=== PATIENT | male | born 1980 | race Caucasian/White ===

== ENCOUNTER 2018-08-22 10:27 | Outpatient (REF) | payer MEDICAID, SELFPAY ==
[2018-08-22 12:53] LABS: Anion Gap 7.7 mmol/L (3-11); BUN 11 mg/dL (7-18); CO2 29.3 mmol/L (21.0-32.0); CREATININE 0.89 mg/dL (0.70-1.30); Calcium 9.7 mg/dL (8.5-10.1); Chloride 101 mmol/L (98-107); Glucose 103 mg/dL (70-100); Magnesium 2.1 mg/dL (1.8-2.4); Potassium 4.4 mmol/L (3.5-5.1); Sodium 138 mmol/L (136-145)
[2018-08-22 12:58] LABS: HCT 49.6 % (40.0-50.0); HGB 16.9 g/dL (13.5-17.5); Mean Corp. HGB Concentration 34.1 g/dL (32.0-36.0); Mean Corpuscular Hemoglobin 30.8 pg (27.0-33.0); Mean Corpuscular Volume 90.5 fL (80-95); Mean Platelet Volume 10.4 fL (8.0-11.0); Platelet Count 276 x1000/uL (130-400); RBC 5.48 m/cumm (4.50-6.00); RBC Distribution Width 14.8 % (11.8-14.1); White Blood Cell Count 9.18 k/cumm (4.4-10.8)
[2018-08-22 14:01] LABS: ESR 18 MM/HR (0-15)
== END 2018-08-22 10:47 ==
LOC: NCHCN 10:27
PROVIDERS: PCP Nurse Practitioner Family; Visit Provider Nurse Practitioner Family
DX: M79.10 Myalgia, unspecified site (principal)
CPT/HCPCS: 80048; 85027; 85652; 83735; 84550

== ENCOUNTER 2019-11-05 11:40 | Emergency (ER) | payer MEDICAID, SELFPAY ==
[2019-11-05 11:57] VITALS: BP 111/81; PULSE 104; RESP 16; TEMP 36.6; O2SAT 97
--- NOTE | 2019-11-05 12:00 | ED.GENADUL_ITS ---
Discharge Plan Disposition Patient Disposition: HOME Condition: Improving Discharge Details Chief Complaint: Nk/Back Pain Clinical Impression: Acute exacerbation of chronic low back pain Primary Care Provider: Araceli Bowers ED Provider: Jemma Chandra Home Meds and New Rx's Prescriptions: New prednisone 20 mg tablet 60 mg PO DAILY 3 Days Qty: 9 RF: 0 oxycodone 5 mg tablet 5 mg PO Q4H PRN (Reason: pain) Qty: 5 RF: 0 Continued gabapentin 600 mg Tablet 600 mg PO BID RF: 0 meloxicam 15 mg Tablet 15 mg PO DAILY RF: 0 Discharge Instructions Instructions: Low Back Strain (ED) Additional Instructions: Encourage water intake. Encourage gentle stretching and frequent ambulation. May use 1000mg Tylenol every 6 hours as needed for pain. May use Meloxicam as prescribed, do not take further until tomorrow morning. Please take the steroids as prescribed. You may use the oxycodone as prescribed. Do not drive will take this medication. Keep this in a safe place. Take only as prescribed. Please follow-up with primary care this week for reevaluation. If you develop fever/chills, weakness, sensation changes, changes in her bowel or bladder habits or the new/worsening symptom please seek care urgently once again. Referrals: Araceli Bowers [Primary Care Provider] - Medical Decision Making Patient is a pleasant 38-year-old male presents today with chief complaint of acute on chronic right-sided back pain. Patient has known disc disease in the lumbar spine and typically has some low-level chronic pain. However, he has not had a flare like this in several years. He does report this feels the same his previous issues. Denies any trauma but reports that he did start a more physical job last week which is likely contributing to his increased pain. He reports that his pain has been progressively increasing over the next 3 to 4 days today he is been having difficulty with ambulation secondary to the pain. He was able to get himself here, drove himself to the ER without issue. He denies any altered sensation. Denies any focal area of weakness. Finds the pain is exacerbated particularly with moving the right leg out in front of him. He reports that he has been on steroids historically like to try to avoid these if possible secondary to side effects. Reports that Toradol has worked well for him in the past. Patient reports that he has known disc disease of L1, L2 and S1 On exam, patient appears uncomfortable. Pain is maximal over the right SI joint and paraspinal aspect of the lower lumbar spine. He has no neurologic deficit, no saddle paresthesias. Strength is intact, equal reflexes. No skin discoloration or evidence of infection. Patient slightly tachycardic at 104, is likely associated with pain. Without any trauma or acute changes pain, do not feel that any imaging is warranted. No neurologic deficit, I do not have suspicion for cauda equina at this point. No other emergent etiology. Will treat as he has been in the past for his acute on chronic back pain. Patient is feeling improved after Toradol but feels the pain is still too severe to be able to go home at this point. We will augment this with Tylenol, Lidoderm patch. He and I also revisited the option of oral steroids. He states that he has tolerated them but was hoping to stay off of them. States that they have worked quite well for him historically. We discussed a watch and wait approach with prescription After above discussion, spoke with patient again and at this point, he is requesting oral steroids. Has not had a true adverse reaction to them, since that he has tolerated them well. Will begin on 60 mg oral prednisone Patient continues to feel improved and is requesting discharge. We did discuss risk/benefits of additional narcotic medications. 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 He does feel ready for discharge. Will prescribe oxycodone to take prior to bed to help with severe discomfort if needed. He was given strict usage instructions. He will not drive will take this medication. He was given strict return precautions. Will contact primary care tomorrow to schedule follow-up appointment. Encourage hydration. He has worked with physical therapy historically and will begin performing their exercises as previously advised. He was given strict return precautions. All his questions and concerns were addressed and he is in agreement this plan. [facility] General Mode of arrival: ambulatory . Date/Time Provider Initiated Documentation: 11/05/19 11:54 . Limitations to Documentation: no limitations . Information obtained by: patient and RN notes reviewed . History of Present Illness 38 year old M presents to the emergency department with the chief complaint of right sided back pain, described as severe and similar to prior episodes (reports last flair of pain was a few years ago), with intensity rated at 9. Quality is described as stabbing, and is localized to the back. Patient extremity. Patient started experiencing this day(s) and it has been constant. Immobilization improves symptom(s), Movement worsens symptoms . Patient notes no other symptoms.; denies chest pain, cough, diaphoresis, fever/chills, headaches, loss of appetite, nausea/vomiting, rash and weakness. Patient did receive the following treatments prior to arrival, none Related Data Home Medications Medication Instructions Recorded Confirmed gabapentin 600 mg PO BID 11/05/19 11/05/19 meloxicam 15 mg PO DAILY 11/05/19 11/05/19 oxycodone 5 mg PO Q4H PRN #5 tab 11/05/19 prednisone 60 mg PO DAILY 3 Days #9 tab 11/05/19 Previous Rx's Medication Instructions Recorded oxycodone 5 mg PO Q4H PRN #5 tab 11/05/19 prednisone 60 mg PO DAILY 3 Days #9 tab 11/05/19 Allergies Allergy/AdvReac Type Severity Reaction Status Date / Time No Known Allergies Allergy Unverified 11/05/19 12:02 Review of Systems Constitutional Constitutional: Reports as per HPI, Denies chills, Denies fatigue, Denies fever(s), Denies frequent falls and Denies headache(s) Eyes Eyes: Denies change in vision ENT Ears, Nose, Mouth, and Throat: Denies headache(s) Cardiovascular Cardiovascular: Denies chest pain, Denies dyspnea and Denies dyspnea on exertion Respiratory Respiratory: Denies cough, Denies dyspnea and Denies dyspnea on exertion Gastrointestinal Gastrointestinal: Denies abdominal pain, Denies change in bowel habits and Denies fecal incontinence Genitourinary Genitourinary: Reports as per HPI, Denies urinary hesitancy and Denies urinary incontinence Musculoskeletal Musculoskeletal: Reports as per HPI, Reports back pain, Denies muscle weakness, Denies numbness, Denies radiating pain into limb, Reports stiffness and Denies tingling Integumentary/Breasts Skin/Breast: Reports as per HPI and Denies rash Neurologic Neurologic: Reports as per HPI, Denies frequent falls, Denies headache(s), Denies focal weakness, Denies numbness, Denies radicular pain, Denies sensory deficit, Denies tingling and Denies paresthesias Endocrine Endocrine: Denies fatigue [facility] Social History Smoking/Tobacco Use Status: Current every day Drug use: Occasionally Do you feel safe at home: Yes Do you feel safe in your relationship?: Yes Exam Const General: cooperative, healthy appearing, uncomfortable (patient leaning to the left, appears uncomfortable), no acute distress, well developed and well groomed Nutritional Appearance: well nourished and overweight Orientation: alert and awake Eyes General: appearance normal, both eyes and all related structures Neck Neck: normal visual inspection, full ROM, no lymphadenopathy and no meningeal signs Resp Effort & Inspection: normal respiratory effort and able to speak in complete sentences Auscultation: clear to auscultation bilaterally, no rales, no rhonchi and no wheezes Cardio Rate: regular rate Rhythm: regular rhythm Heart Sounds: S1 normal and S2 normal Back/Spine/Pelvis Back: no CVA tenderness Cervical Spine: normal cervical lordosis and cervical ROM normal Thoracic/Lumbar Spine: thoracic and lumbar spine normal to inspection, No thoraco-lumbar ROM normal (limited secondary to right sided lumbar pain), No straight leg raise negative bilaterally (positive right side), No mass, pain with thoraco-lumbar ROM, paraspinal tenderness (right side of lumbar spine, diffuse), No thoraco-lumbar spasm, No thoracic spinal tenderness, No lumbar spinal tenderness and straight leg raise positive (right) Pelvis: no pain with anterior-posterior compression and no pain with lateral compression Sacroiliac joints: on the right tender to palpation and on the left nontender Skin General skin exam: no rashes or lesions noted Neuro General: alert and awake Cognition: normal cognition Speech: speech normal Gait: antalgic Motor: muscle tone normal throughout, strength 5/5 throughout, no movement abnormalities noted and no fasciculations Sensory Exam: no sensory deficits noted (no saddle paresthesias) DTR's: Rt Patellar: 2+, Lt Patellar: 2+, Rt Ankle: 2+ and Lt Ankle: 2+ Extrem General: normal to inspection, full ROM, normal capillary refill, no joint enlargement, no pedal edema, no calf tenderness and normal gait Psych Appearance: grossly normal and well kempt Mental Status: mental status grossly normal Speech and Movement: speech and movement normal
[2019-11-05] MEDS: Ketorolac 60 MG/2 ML VIAL IM (12:19)
[2019-11-05] MEDS: Lidocaine 5% Patch 1 PATCH TP (12:45)
[2019-11-05] MEDS: Acetaminophen 500 MG TAB 1000 MG PO (12:55)
[2019-11-05] MEDS: predniSONE 20 MG TAB 60 MG PO (12:56)
[2019-11-05 13:25] VITALS: BP 124/81; PULSE 96; RESP 16; TEMP 36.6; O2SAT 96
== END 2019-11-05 13:55 | disposition home or self-care (01) ==
PROVIDERS: Emergency Provider Physician Assistant; PCP Nurse Practitioner Family
DX: M54.5 Low back pain (principal); G89.29 Other chronic pain
CPT/HCPCS: 96372; 99284; J1885; J7512

== ENCOUNTER 2019-11-14 07:13 | Emergency (ER) | payer MEDICAID, SELFPAY ==
[2019-11-14 07:16] VITALS: BP 150/86; PULSE 99; RESP 16; TEMP 36.4; O2SAT 96
--- NOTE | 2019-11-14 07:23 | ED.GENADUL_ITS ---
Discharge Plan Disposition Patient Disposition: HOME Condition: Good Discharge Details Chief Complaint: EyeProblem Clinical Impression: Abrasion of cornea, right Primary Care Provider: Araceli Bowers ED Provider: Suresh Marie [place] Meds and New Rx's Prescriptions: New erythromycin 5 mg/gram (0.5 %) Ointment 0.5 inch ophthalmic (eye) Q6H PRNQty: 3.5 RF: 0 Continued gabapentin 600 mg Tablet 600 mg PO BID RF: 0 meloxicam 15 mg Tablet 15 mg PO DAILY RF: 0 oxycodone 5 mg tablet 5 mg PO Q4H PRN (Reason: pain) Qty: 5 RF: 0 Discharge Instructions Instructions: Corneal Abrasion (ED) Additional Instructions: Antibiotic ointment as directed every 4-6 hours for the first couple of days and then every 6 hours for a week. Follow-up with [facility] eye care in 5 to 7 days. Return to ED if change in vision, worsening eye pain, other concerns. Stand Alone Forms: Work Release Referrals: [facility] [Outside] Medical Decision Making Tetracaine used to anesthetize the right eye. Upper eyelid everted and swept but no obvious foreign body. Fluorescein staining done. Uptake noted at the 6 o'clock position. Under slit lamp exam no foreign body appreciated but definite corneal abrasion noted. Will start erythromycin ointment. Tylenol Motrin for discomfort. Follow-up in about a week for [facility]he[facility] with [facility]. Return to ED if change in vision, worsening pain, other concerns. HPI General Mode of arrival: ambulatory . Date/Time Provider Initiated Documentation: 11/14/19 07:23 . Limitations to Documentation: no limitations . Information obtained by: patient . HPI Narrative: Patient presents to ED with right eye irritation and foreign body sensation. Patient initially noticed yesterday morning. He felt like he had got something in it while walking through his kitchen but had no specific injury. It has been irritated and felt like something was in it since then. He has irrigated a few times. He tried to go to work today but the eyes bothering him too much so he came in for evaluation. There is no vision change chest irritation foreign body sensation. Related Data Home Medications Medication Instructions Recorded Confirmed gabapentin 600 mg PO BID 11/05/19 11/14/19 meloxicam 15 mg PO DAILY 11/05/19 11/14/19 oxycodone 5 mg PO Q4H PRN #5 tab 11/05/19 11/14/19 erythromycin 0.5 inch OPHTHALMIC (EYE) Q6H PRN 11/14/19 #3.5 gm Previous Rx's Medication Instructions Recorded oxycodone 5 mg PO Q4H PRN #5 tab 11/05/19 erythromycin 0.5 inch OPHTHALMIC (EYE) Q6H PRN 11/14/19 #3.5 gm Allergies Allergy/AdvReac Type Severity Reaction Status Date / Time No Known Allergies Allergy Unverified 11/14/19 07:21 General Stated Complaint: EyeProblem KAMARI: 4 Review of Systems Constitutional Constitutional: Denies fever(s) Eyes Eyes: Denies change in vision and Reports irritation COUNTS INCLUDE 234 BEDS AT THE [facility] Social History Smoking/Tobacco Use Status: Current every day Alcohol Intake: former Drug use: Occasionally Do you feel safe at home: Yes Do you feel safe in your relationship?: Yes Exam Const General: cooperative and comfortable Orientation: alert and oriented x3 HENMT Head: normocephalic and atraumatic General nose exam: external nose normal Face and sinus: normal facial exam Eyes Periorbital: periorbital findings normal Eyelids: eyelids normal Conjunctivae: conjunctival abnormality right conjunctival injection Cornea: corneas abnormal on the right fluorescein used and abrasion curved and at the following clock position (6) Pupils: PERRL EOM: EOM intact bilaterally Course Vital Signs Vital signs: Vital Signs Temperature 97.5 F L 11/14/19 07:16 Pulse 99 H 11/14/19 07:16 Respiratory Rate 16 11/14/19 07:16 Blood Pressure 150/86 H 11/14/19 07:16 Pulse Oximetry 96 11/14/19 07:16 Temperature 97.5 F L 11/14/19 07:16 Temperature Source Temporal Artery Scan 11/14/19 07:16 Pulse 99 H 11/14/19 07:16 Respiratory Rate 16 11/14/19 07:16 Respiratory Effort Non-Labored 11/14/19 07:18 Blood Pressure 150/86 H 11/14/19 07:16 Blood Pressure Position Sitting 11/14/19 07:16 Pulse Oximetry 96 11/14/19 07:16 Oxygen Delivery Method Room Air 11/14/19 07:16 Oxygen Flow Rate 0 11/14/19 07:16 Pain Level 6 11/14/19 07:16
[2019-11-14] MEDS: Fluorescein STRIPS 100/BOX 1 MG (07:42)
[2019-11-14] MEDS: Erythromycin Ophth Oint 3.5 GM TUBE (07:42)
[2019-11-14] MEDS: Tetracaine 0.5% 4 ML BTL (07:43)
== END 2019-11-14 07:52 | disposition home or self-care (01) ==
LOC: ER 07:51
PROVIDERS: Emergency Provider Emergency Medicine; PCP Nurse Practitioner Family
DX: S05.01XA Injury of conjunctiva and corneal abrasion without foreign body, right eye, initial encounter (principal); X58.XXXA Exposure to other specified factors, initial encounter
CPT/HCPCS: 99283

== ENCOUNTER 2020-10-29 13:27 | Emergency (ER) | payer MEDICAID, SELFPAY ==
[2020-10-29 13:32] VITALS: BP 129/86; PULSE 102; RESP 16; TEMP 36.6; O2SAT 96
--- NOTE | 2020-10-29 13:49 | W.ED.GENAD ---
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 Continue taking your medications as directed. Cool and/or warm compresses every 2 hours for 20 minutes. Gentle stretching as tolerated. Please watch for new or worsening symptoms and return to the ER for any concerns. Stand Alone Forms: Work Release Medical Decision Making 39-year-old gentleman, past medical history of chronic back pain presents to the ER today with exacerbation of the past 3 days. No obvious trauma. He denies fever, IV drug use, bowel or bladder retention-incontinence, numbness, tingling, weakness. Clinically he appears uncomfortable but is not in any distress. Neuro, vascular, tendon intact. No evidence of cauda equina on examination. Discussed options. Do not believe that emergent imaging is indicated as he recently had an outpatient MRI and this was atraumatic. He states that Toradol has helped him in the past. Will give 60 IM Toradol now. He will follow up with his pain management team tomorrow as already scheduled for his epidural injection.m Medical Records Medical records reviewed: Yes I reviewed the patient's medical records. HPI General Mode of arrival: ambulatory. Date/Time Provider Initiated Documentation: 10/29/20 13:28. Limitations to Documentation: no limitations. Information obtained by: patient. HPI Narrative: This is a 39-year-old gentleman, past medical history of chronic back pain, L5-S1 herniation. He sees pain management for this, is on meloxicam and gabapentin. Is scheduled for an epidural injection tomorrow. Here today because his pain over the past 3 days has increased, no obvious injury. Reports the pain is the same as his other flareups, travels down his right leg but not past his knee. Denies any abdominal pain, fever, midline point tenderness, urinary or bowel incontinence or retention, numbness, tingling, weakness. States that in the past Toradol has helped greatly. Related Data Home Medications Medication Instructions Recorded Confirmed meloxicam 15 mg PO DAILY 11/05/19 10/29/20 gabapentin 600 mg tablet 600 mg PO TID 30 Days #90 tab 02/28/20 10/29/20 Previous Rx's Medication Instructions Recorded gabapentin 600 mg tablet 600 mg PO TID 30 Days #90 tab 02/28/20 Allergies Allergy/AdvReac Type Severity Reaction Status Date / Time No Known Allergies Allergy Unverified 10/29/20 13:36 General Stated Complaint: Nk/Back Pain KAMARI: 4 Review of Systems Constitutional Constitutional: Denies fever(s) and Denies weakness Cardiovascular Cardiovascular: Denies chest pain and Denies dyspnea Respiratory Respiratory: Denies cough and Denies dyspnea Gastrointestinal Gastrointestinal: Denies abdominal pain, Denies fecal incontinence, Denies nausea and Denies vomiting Genitourinary Genitourinary: Denies hematuria, Denies dysuria and Denies urinary incontinence Musculoskeletal Musculoskeletal: Reports back pain, Denies numbness and Denies tingling Integumentary/Breasts Skin/Breast: Denies rash Neurologic Neurologic: Denies numbness, Denies tingling and Denies weakness [facility] Medical History Abscess, groin Acute low back pain Arthralgia Chronic low back pain Degenerative disc disease, lumbar 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 Myalgia Patellofemoral syndrome Sleep disturbance Tobacco dependence Surgical History History of appendectomy Social History Smoking/Tobacco Use Status: Current every day Tobacco Type: cigarettes Smoking risk assessment performed?: Yes Alcohol Intake: current Alcohol Intake frequency: holidays/special occasions only Drug use: Occasionally Substance use type: marijuana Details: recreational cannabis use Do you feel safe at home: Yes Do you feel safe in your relationship?: Yes Exam Const General: cooperative, healthy appearing, no acute distress and other (Appears uncomfortable) Orientation: alert, awake and oriented x3 HENMT Head: normal to inspection, normocephalic and atraumatic Eyes General: appearance normal, both eyes and all related structures Conjunctivae: conjunctivae normal Sclera: sclerae normal Neck Neck: normal visual inspection, full ROM, no meningeal signs, trachea midline and supple Resp Effort & Inspection: normal respiratory effort and able to speak in complete sentences Auscultation: clear to auscultation bilaterally Cardio Rate: regular rate Rhythm: regular rhythm GI Inspection: normal to inspection Palpation: soft, not firm, no guarding, no pulsatile masses and nontender Back/Spine/Pelvis Back: no CVA tenderness and back tenderness (Diffuse right lumbar, no midline point tenderness or spasm) Skin General skin exam: no rashes or lesions noted Neuro General: patient alert, patient awake, moves all extremities and no focal motor deficits Cognition: normal cognition Speech: speech normal Gait: antalgic Motor: muscle tone normal throughout Sensory Exam: no sensory deficits noted Extrem General: normal to inspection, full ROM, capillary refill normal, no pedal edema and no calf tenderness Psych Appearance: grossly normal Mental Status: mental status grossly normal Course Vital Signs Vital signs: Vital Signs Temperature 36.6 C 10/29/20 13:32 Pulse 102 H 10/29/20 13:32 Respiratory Rate 16 10/29/20 13:32 Blood Pressure 129/86 10/29/20 13:32 Pulse Oximetry 96 10/29/20 13:32 Temperature 36.6 C 10/29/20 13:32 Temperature Source Skin 10/29/20 13:32 Pulse 102 H 10/29/20 13:32 Respiratory Rate 16 10/29/20 13:32 Respiratory Effort Non-Labored 10/29/20 13:32 Blood Pressure 129/86 10/29/20 13:32 Blood Pressure Position Sitting 10/29/20 13:32 Pulse Oximetry 96 10/29/20 13:32 Oxygen Delivery Method Room Air 10/29/20 13:32 Oxygen Flow Rate 0 10/29/20 13:32 Pain Level 8 10/29/20 13:37
[2020-10-29] MEDS: Ketorolac 60 MG/2 ML VIAL IM (14:04)
== END 2020-10-29 14:19 | disposition home or self-care (01) ==
PROVIDERS: Emergency Provider Physician Assistant; PCP Nurse Practitioner Family
DX: M54.5 Low back pain (principal); G89.29 Other chronic pain
CPT/HCPCS: 96372; 99284; 99283; J1885

== ENCOUNTER 2020-10-30 15:02 | Outpatient (CLI) | payer MEDICAID, SELFPAY ==
--- NOTE | 2020-10-30 06:00 | DI.RAD_ITS ---
EXAM: XR PAIN CLINIC LUMBAR SP 2V CLINICAL HISTORY: Dx: Lumbar Radiculopathy TECHNIQUE: 2D and realtime digital imaging was performed. CONTRAST MATERIAL: None. COMPARISON: No exams were available for comparison FINDINGS: Fluoroscopy was provided for Dr. Pope During the performance of a L5-S1 epidural steroid injection.. Please refer to the procedure report for complete details. Fluoro time: 16.9 seconds Cumulative dose: 10.91 mGy IMPRESSION:
[2020-10-30 15:08] VITALS: BP 106/83; PULSE 104; RESP 18; TEMP 37.4; O2SAT 96
[2020-10-30] MEDS: Omnipaque 240 MG/ML 50 ML BTL IJ (15:32)
[2020-10-30] MEDS: methylPREDNISolone ACETATE 80 MG/ML VIAL IJ (15:32)
--- NOTE | 2020-10-30 15:33 | PDOC.PAIN_ITS ---
Pain Clinic Procedure Note Procedure Note Procedure Note: Date of procedure: October 30, 2020 Lumbar Epidural Steroid Injection Procedure Note COMMENTS: He was seen by Fernando Patricia on 10/09/20 and had an MRI of the lumbar spine on 09/06/20. His pain is running down the right leg. I have reviewed his recent evaluations and documentation. DX: Lumbosacral radiculopathy FRANCY KUHN has been referred to the [facility] for lumbar epidural steroid injection. The patient was greeted by the nurse who verified patients name and . Patient was then taken to the fluoroscopy suite. The patient was interviewed and the medial record reviewed. There were no medica l, pharmacologic, radiographic, or other structural contraindications to attempting fluoroscopically guided lumbar epidural steroid injection. Risks and expected side effects as well as potential benefits of the procedure were reviewed and voiced concerns expressed. The patient consent form was signed and witnessed. Standard patient time-out procedure was performed. The patient was placed in the prone position on the fluoroscopy table and automated blood pressure cuff and pulse oximeter applied. The skin entry point for entering/approaching the epidural space at L5-S1 and marked. Following thorough chlorhexadine preparation of the skin and draping and 1% lidocaine infiltration of the skin entry point and subcutaneous tissues, a 18 gauge Touhy needle was placed under fluoroscopic guidance and with loss of resistance technique into the epidural space. Needle tip placement and depth were aided and confirmed by fluoroscopy. There was no paresthesia or return of blood or CSF through the needle. 1 cc's of Omnipaque 240 was injected with clear epidural spread confirmed with fluoroscopy. 80mg depomedrol was injected. There was not any unusual discomfort expressed by FRANCY KUHN. Patient's vital signs were stable throughout the procedure and were as recorded in nursing records. Follow up plans and appointments were discussed with patient. Post procedure instruction was given as documented in nursing records and having met discharge criteria and was discharged from the [facility] Management Center. COMMENTS: If this procedure is helpful, it can be completed up to 3 times per 12 months. Eduardo Pope DO, MPH Pain Management
[2020-10-30 15:42] VITALS: BP 128/87; PULSE 104; RESP 20; O2SAT 97
== END 2020-10-30 15:22 ==
PROVIDERS: PCP Nurse Practitioner Family; Visit Provider Preventive Medicine Occupational Medicine
DX: M54.17 Radiculopathy, lumbosacral region (principal)
CPT/HCPCS: 62323; 72100; J1040; Q9967

== ENCOUNTER 2020-12-25 15:46 | Outpatient (REF) | payer MEDICAID, SELFPAY ==
[2020-12-25 16:04] LABS: Anion Gap 9.4 mmol/L (3-11); BUN 15 mg/dL (7-18); CO2 26.6 mmol/L (21.0-32.0); CREATININE 0.9 mg/dL (0.70-1.30); Calcium 9.3 mg/dL (8.5-10.1); Calculated LDL 122 mg/dL (<100); Chloride 104 mmol/L (98-107); Cholesterol 229 mg/dL (<200); Glucose 98 mg/dL (74-106); HDL Cholesterol 36 mg/dL (40-60); Potassium 4.7 mmol/L (3.5-5.1); Sodium 140 mmol/L (136-145); Triglyceride 355 mg/dL (<150)
== END 2020-12-25 15:47 | disposition home or self-care (01) ==
LOC: NCHCN 15:46
PROVIDERS: PCP Nurse Practitioner Family; Visit Provider Nurse Practitioner Family
DX: F17.200 Nicotine dependence, unspecified, uncomplicated (principal); Z13.220 Encounter for screening for lipoid disorders; M54.5 Low back pain
CPT/HCPCS: 80048; 80061

== ENCOUNTER 2021-02-11 14:28 | Outpatient (CLI) | payer MEDICAID, SELFPAY ==
--- NOTE | 2021-02-11 06:00 | DI.RAD_ITS ---
EXAM: XR PAIN CLINIC LUMBAR SP 2V CLINICAL HISTORY: Dx: Lumbar Radiculopathy TECHNIQUE: 2D and realtime digital imaging was performed. COMPARISON: No exams were available for comparison FINDINGS: C-arm fluoroscopy was utilized by Dr. Perez during reported lumbar epidural steroid injection. Hard epic kaleidoscope analyst y shows midline injection at L5-S1. IMPRESSION: RADIATION DOSE DELIVERED: Maggier=13.5 mGy
--- NOTE | 2021-02-11 14:33 | PDOC.PAIN_ITS ---
Pain Clinic Procedure Note Procedure Note Procedure Note: Date of procedure: February 11, 2021 Lumbar Epidural Steroid Injection Procedure Note COMMENTS: He was seen by Yuliyamanjinder on 10/09/20 and had an MRI of the lumbar spine on 09/06/20. He had a L5-S1 LESI by Dr Pope on 10/30/2020 which provided at least 75% pain relief lasting for 3 months and his right leg radicular symptom gradually returned. He returns today for a repeat injection. DX: Lumbosacral radiculopathy FRANCY KUHN has been referred to the [facility] for lumbar epidural steroid injection. The patient was greeted by the nurse who verified patients name and . Patient was then taken to the fluoroscopy suite. The patient was interviewed and the medial record reviewed. There were no medical, pharmacologic, radiographic, or other structural contraindications to attempting fluoroscopically guided lumbar epidural steroid injection. Risks and expected side effects as well as potential benefits of the procedure were reviewed and voiced concerns expressed. The patient consent form was signed and witnessed. Standard patient time-out procedure was performed. The patient was placed in the prone position on the fluoroscopy table and automated blood pressure cuff and pulse oximeter applied. The skin entry point for entering/approaching the epidural space at L5-S1 and marked. Following thorough chlorhexadine preparation of the skin and draping and 1% lidocaine inf iltration of the skin entry point and subcutaneous tissues, a 18 gauge Touhy needle was placed under fluoroscopic guidance and with loss of resistance technique into the epidural space. Needle tip placement and depth were aided and confirmed by fluoroscopy. There was no paresthesia or return of blood or CSF through the needle. 1 cc's of Omnipaque 240 was injected with clear epidural spread confirmed with fluoroscopy. 80mg depomedrol was injected, additional 1cc of preservative free 1% lidocaine and 0.5cc of preservative free normal saline was injected to flush the solution of the Touhy needle. There was not any unusual discomfort expressed by FRANCY KUHN. Patient's vital signs were stable throughout the procedure and were as recorded in nursing records. Follow up plans and appointments were discussed with patient. Post procedure instruction was given as documented in nursing records and having met discharge criteria and was discharged from the [facility]. COMMENTS: If this procedure is helpful, it can be completed up to 3 times per 12 months. Lilian [facility]
[2021-02-11 14:37] VITALS: BP 118/67; PULSE 93; RESP 18; TEMP 36.7; O2SAT 94
[2021-02-11] MEDS: Omnipaque 240 MG/ML 50 ML BTL IJ (15:05)
[2021-02-11] MEDS: methylPREDNISolone ACETATE 80 MG/ML VIAL IJ (15:06)
[2021-02-11 15:07] VITALS: BP 150/58; PULSE 88; RESP 19; O2SAT 96
== END 2021-02-11 14:29 | disposition home or self-care (01) ==
LOC: PC 14:29
PROVIDERS: PCP Nurse Practitioner Family; Visit Provider Internal Medicine
DX: M54.17 Radiculopathy, lumbosacral region (principal)
CPT/HCPCS: 62323; 72100; J1040; Q9967

== ENCOUNTER 2021-09-24 08:19 | Outpatient (CLI) | payer MEDICAID, SELFPAY ==
[2021-09-24 08:32] VITALS: BP 125/78; PULSE 104; RESP 18; TEMP 36.9; O2SAT 95
--- NOTE | 2021-09-24 08:55 | DI.RAD_ITS ---
Exam(s) XR PAIN CLINIC LUMBAR SP 2V EXAM: XR PAIN CLINIC LUMBAR SP 2V CLINICAL HISTORY: DX: Lumbar Radiculopathy TECHNIQUE: 2D and realtime digital imaging was performed. CONTRAST MATERIAL: Refer to procedure report. COMPARISON: No exams were available for comparison FINDINGS: Fluoroscopy was provided for Dr. Pope during the performance of a epidural steroid injection. Plehuey e refer to the procedure report for complete details. Ka,r=12.08 mGy IMPRESSION:
[2021-09-24 08:56] VITALS: BP 120/64; PULSE 93; RESP 17; O2SAT 97
[2021-09-24] MEDS: methylPREDNISolone ACETATE 80 MG/ML VIAL IJ (08:57)
[2021-09-24] MEDS: Omnipaque 240 MG/ML 50 ML BTL IJ (08:57)
--- NOTE | 2021-09-24 09:02 | PDOC.PAIN ---
Pain Clinic Procedure Note Procedure Note Procedure Note: Lumbar Epidural Steroid Injection Procedure Note COMMENTS: Pre-procedure pain VAS was 7/10. Dx: Lumbosacral radiculopathy FRANCY KUHN has been referred to the [facility] for lumbar epidural steroid injection. The patient was greeted by the nurse who verified patients name and . Patient was then taken to the fluoroscopy suite. The patient was interviewed and the medial record reviewed. There were no medical, pharmacologic, radiographic, or other structural contraindications to attempting fluoroscopically guided lumbar epidural steroid injection. Risks and expected side effects as well as potential benefits of the procedure were reviewed and voiced concerns expressed. The patient consent form was signed and witnessed. Standard patient time-out procedure was performed. The patient was placed in the prone position on the fluoroscopy table and automated blood pressure cuff and pulse oximeter applied. The skin entry point for entering/approaching the epidural space at L5-S1 and marked. Following thorough chlorhexadine preparation of the skin and draping and 1% lidocaine infiltration of the skin entry point and subcutaneous tissues, a 18 gauge Touhy needle was placed under fluoroscopic guidance and with loss of resistance technique into the epidural space. Needle tip placement and depth were aided and confirmed by fluoroscopy. There was no paresthesia or return of blood or CSF through the needle. 1 cc's of Omnipaque 240 was injected with clear epidural spread confirmed with fluoroscopy. 80mg depomedrol was injected. There was not any unusual discomfort expressed by FRANCY KUHN. Patient's vital signs were stable throughout the procedure and were as recorded in nursing records. Follow up plans and appointments were discussed with patient. Post procedure instruction was given as documented in nursing records and having met discharge criteria and was discharged from the [facility]. COMMENTS: If this procedure is helpful, it can be completed up to 3 times per 12 months. Post-procedure pain VAS = 0/10 Eduardo Pope DO, MPH Pain Management
== END 2021-09-24 08:20 | disposition home or self-care (01) ==
LOC: PC 08:19
PROVIDERS: PCP Nurse Practitioner Family; Visit Provider Preventive Medicine Occupational Medicine
DX: M54.17 Radiculopathy, lumbosacral region (principal)
CPT/HCPCS: 62323; 72100; J1040; Q9967

== ENCOUNTER 2021-10-31 07:55 | Emergency (ER) | payer MEDICAID, SELFPAY ==
[2021-10-31] VITALS (7 sets, daily range): BP systolic 119–136; BP diastolic 68–82; PULSE 83–99; RESP 14–16; TEMP 36–36.1; O2SAT 93–96
--- NOTE | 2021-10-31 08:15 | DI.CT_ITS ---
Exam(s) CT PELVIC W EXAM: CT PELVIC W CLINICAL HISTORY: Abscess TECHNIQUE: Imaging Protocol: Axial computed tomography images with coronal and sagittal reformatted images were created and reviewed CONTRAST MATERIAL: Intravenous: Omnipaque 350 Contrast volume:100 mL Oral: No COMPARISON: No exams were available for comparison FINDINGS: PELVIS: Abdominal Aorta: Abdominal portion non-dilated. Bowel: No obstruction or bowel wall thickening. Surgical clips are seen in the cecum suggestive of pr ior appendectomy. Peritoneal Cavity: No ascites, collection or mesenteric inflammatory response. No free air. Soft Tissues: There is a peripherally enhancing fluid collection in the perirectal soft tissues. It measures 4.7 cm AP x 3.0 cm transverse by 3.0 cm craniocaudad. Mild infiltration in the surrounding soft tissues is noted. Small fat containing umbilical hernia. Bladder: Symmetric distention, no gross wall thickening. Reproductive Organs: Unremarkable as visualized. Lymph Nodes: Mildly enlarged left inguinal lymph nodes which are likely reactive. Bones: Within normal limits. IMPRESSION: 1. 4.7 x 3 x 3 cm perirectal abscess. 2. Results of this exam have been verbally communicated with provider. RADIATION DOSE DELIVERED: 841.17mGy.cm Total DLP 841.17mGy.cm Total DLP DATA REPOSITORY: All CT scans at this facility are submitted to the National Radiology Data Registry (NRDR) Dose Index Registry (DIR) with the [employer] (ACR). RADIATION OPTIMIZATION: All CT scans at this facility use at least one of these dose optimization te chniques: automated exposure control; mA and/or kV adjustment per patient size (includes targeted exa ms where dose is matched to clinical indication); or iterative reconstruction.
--- NOTE | 2021-10-31 08:25 | ED.GENADUL_ITS ---
Discharge Plan Disposition Patient Disposition: HOME Condition: Stable Discharge Details Clinical Impression: Julia-rectal abscess Primary Care Provider: Araceli Bowers ED Provider: Catherine Branch Home Meds and New Rx's Prescriptions: New amoxicillin-pot clavulanate [Augmentin] 875-125 mg tablet 1 tab PO BID 10 Days Qty: 20 RF: 0 oxycodone-acetaminophen [Percocet] 5-325 mg tablet 1 tab PO Q6H PRN (Reason: pain) Qty: 7 RF: 0 No Action gabapentin 600 mg tablet 600 mg PO TID 30 Days Qty: 90 RF: 11 meloxicam 15 mg Tablet 15 mg PO DAILY RF: 0 Discharge Instructions Instructions: Abscess (ED) Additional Instructions: Warm Sitz baths. Do not apply antibiotic ointment or hydrogen peroxide. Clean daily with soap and water and allowed to air dry. Take the antibiotics as directed. Please eat yogurt or take a probiotic while on the antibiotics. Please follow-up with general surgery within the next week for reevaluation. Please return to the ER for any worsening pain, fever, feeling sicker at any time. Follow up with primary care provider in 3-5 days. Return to ED sooner if any worsening or concerns. Increase oral fluids. Please take Ibuprofen with food every 4-6 hours as needed for pain and swelling. Stand Alone Forms: Work Release Referrals: Monica Mccloud DO [OSTEOPATHIC DOCTOR] - 1 week (Call For Appointment) Medical Decision Making 40-year-old male presents to the ER with chief complaint of draining abscess to his left gluteus for the last 7 days approximately. Patient reports that it opened around New ' and has been draining since. He reports increased pain starting yesterday and chills. He describes the pain as shards of glass to his rectum. He denies any abdominal pain. He has not been able to have a bowel movement since this began. He has been applying antibiotic ointment, and hydrogen peroxide to the area. On initial exam he has some erythema noted to the left buttock, he also has an open lesion which is draining yellow purulent drainage just medial to the erythema. 09 17: Informed by industrial staff nurse blood pressure is 88/36 he is side-lying. Normal saline bolus ordered and instructed to lay patient flat. Spoke with radiologist regarding CT results there is a perirectal abscess measuring approximately 4.7 AP by 3 cm transverse by 3 cm craniocaudal. White blood cell count of 17.86 absolute neutrophils 13.54 monocytes 1.36 [address] Pelvic W: PELVIS: Abdominal Aorta: Abdominal portion non-dilated. Bowel: No obstruction or bowel wall thickening. Surgical clips are seen in the cecum suggestive of prior appendectomy. Peritoneal Cavity: No ascites, collection or mesenteric inflammatory response. No free air. Soft Tissues: There is a peripherally enhancing fluid collection in the perirectal soft tissues. It measures 4.7 cm AP x 3.0 cm transverse by 3.0 cm craniocaudad. Mild infiltration in the surrounding soft tissues is noted. Small fat containing umbilical hernia. Bladder: Symmetric distention, no gross wall thickening. Reproductive Organs: Unremarkable as visualized. Lymph Nodes: Mildly enlarged left inguinal lymph nodes which are likely reactive. Bones: Within normal limits. IMPRESSION: 1. 4.7 x 3 x 3 cm perirectal abscess. 2. Results of this exam have been verbally communicated with provider. 0943: Dr. Santiago here at for patient eval. 0955: Dr. Graham ia reports that patient would rather trial oral antibiotics and return in 24 to 48 hours if any worsening. She has recommended dose of IV antibiotics prior to discharge. She instructed patient on sitz bath and no more topical antibiotic ointment. Zosyn 3.375 IV piggyback ordered. We will send patient home on Augmentin. This text was generated using [employer] dictation system, please disregard any oddities of phrase or misspellings. HPI General Mode of arrival: ambulatory . Date/Time Provider Initiated Documentation: 10/31/21 08:01 . Limitations to Documentation: no limitations . Information obtained by: patient, RN notes reviewed and old records reviewed . HPI Narrative: 40-year-old male presents to the ER with chief complaint of draining abscess to his left gluteus for the last 7 days approximately. Patient reports that it opened around New Year's and has been draining since. He reports increased pain starting yesterday and chills. He describes the pain as shards of glass to his rectum. He denies any abdominal pain. He has not been able to have a bowel movement since this began. He has been applying antibiotic ointment, and hydrogen peroxide to the area. On initial exam he has some erythema noted to the left buttock, he also has an open lesion which is draining yellow purulent drainage just medial to the erythema. Related Data Home Medications Medication Instructions Recorded Confirmed meloxicam 15 mg PO DAILY 11/05/19 10/31/21 gabapentin 600 mg tablet 600 mg PO TID 30 Days #90 tab 02/28/20 10/31/21 amoxicillin-pot clavulanate 1 tab PO BID 10 Days #20 tab 10/31/21 [Augmentin] oxycodone-acetaminophen [Percocet] 1 tab PO Q6H PRN #7 tab 10/31/21 Previous Rx's Medication Instructions Recorded gabapentin 600 mg tablet 600 mg PO TID 30 Days #90 tab 02/28/20 amoxicillin-pot clavulanate 1 tab PO BID 10 Days #20 tab 10/31/21 [Augmentin] oxycodone-acetaminophen [Percocet] 1 tab PO Q6H PRN #7 tab 10/31/21 Allergies Allergy/AdvReac Type Severity Reaction Status Date / Time No Known Allergies Allergy Unverified 10/31/21 08:16 General Stated Complaint: RashLesion KAMARI: 3 Review of Systems All systems reviewed & are unremarkable except as noted in HPI and below Gastrointestinal Gastrointestinal: Reports as per HPI, Reports constipation and Reports other (Rectal pain) PFSH All Active Problems (Updated 10/31/21 @ 10:28 by Catherine Branch) Julia-rectal abscess (Acute) Medical History Abscess, groin Acute low back pain Arthralgia Chronic low back pain Degenerative disc disease, lumbar 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 Appears stated age. Normal body habitus. Head: Normocephalic, no trauma. Eyes: Pupils PERRL, Red reflex noted, EOM's intact. Eyelids symmetrical without lesions, discharge, or swelling. ENT: Bilateral TM's WNL, External ear normal to inspection, no mastoid TTP, swelling, or erythema, Nasal turbinates WNL, no nasal discharge. Normal dentition, Posterior pharynx WNL, no exudate. Chest: RRR, Normal S1, S2, distal pulses intact. Resp: Lungs clear to auscultation bilaterally, no wheezes, rales, or rhonchi. Abdomen: Soft, non-distended, Normoactive bowel sounds all 4 quads. Musculoskeletal: Normal gait, 5/5 strength to all four extremities. Skin: Capillary refill less than 2 sec. Neurologic: Cranial nerves II-XII intact. Alert and oriented x 3. Motor: No deficits noted. Sensory: Intact bilaterally all 4 extremities. Reflexes: DTR's intact bilaterally.. Hematologic/Lymphatic: No ecchymosis, no lymphadenopathy. Back/Spine/Pelvis Pelvis: buttock ecchymosis and buttock tenderness on the left Back/spine/pelvis image: 1. Open lesion draining yellow purulent fluid 2. Erythema Skin Lesions: lesion noted ulcer left mid buttock Course Vital Signs Vital signs: Vital Signs Temperature 36 C L 10/31/21 08:10 Pulse 99 H 10/31/21 08:10 Respiratory Rate 16 10/31/21 08:10 Blood Pressure 119/82 10/31/21 08:10 Pulse Oximetry 96 10/31/21 08:10 Temperature 36 C L 10/31/21 08:10 Temperature Source Skin 10/31/21 08:10 Pulse 99 H 10/31/21 08:10 Respiratory Rate 16 10/31/21 08:10 Respiratory Effort 10/31/21 08:10 Blood Pressure 119/82 10/31/21 08:10 Blood Pressure Position Sitting 10/31/21 08:10 Pulse Oximetry 96 10/31/21 08:10 Oxygen Delivery Method Room Air 10/31/21 08:10 Oxygen Flow Rate 0 10/31/21 08:10 Pain Level 8 10/31/21 08:10
[2021-10-31 08:45] LABS: Absolute Basophil Count 0.05 10^3/uL (0.0-0.2); Absolute Lymphocyte Count 2.77 10^3/uL (1.2-3.4); Absolute Monocyte Count 1.36 10^3/uL (0.1-0.8); Basophils % 0.3; Eosinophils % 0.2; HCT 46.9 % (40.0-50.0); HGB 15.7 g/dL (13.5-17.5); Immature Grans % 0.6; Lymphocytes % 15.5; MCH 30.1 pg (27.0-33.0); MCHC 33.5 % (32.0-36.0); MPV 9.2 fL (8.0-11.0); Monocytes % 7.6; Neutrophils % 75.8; Nucleated RBC 0 %; Platelet Count 341 10^3/uL (130-400); RBC 5.21 10^6/uL (4.36-5.78); RDW 13.3 % (11.8-14.1); RDW-SD 43.9 fL; WBC 17.86 10^3/uL (4.4-10.8)
[2021-10-31 08:48] LABS: Absolute Eosinophil Count 0.04 10^3/uL (0.0-0.7); Absolute Neutrophil Count 13.54 10^3/uL (1.2-6.7)
[2021-10-31] MEDS: Omnipaque 350 MG/ML 100 ML BTL IJ (08:49)
[2021-10-31] MEDS: Normal Saline 1,000 ML 150 ML IV (08:53)
[2021-10-31] MEDS: Ondansetron 4 MG/2 ML VIAL IVP (08:54)
[2021-10-31] MEDS: Normal Saline Flush 10 ML SYR IVP (08:54)
[2021-10-31 08:57] LABS: ALT 39 U/L (16-63); AST 15 U/L (15-37); Albumin 3.9 g/dL (3.4-5.0); Alkaline Phosphatase 143 U/L (46-116); Anion Gap 8.2 mmol/L (3-11); BUN 13 mg/dL (7-18); Bilirubin, Total 0.5 mg/dL (0.2-1.0); CO2 28.8 mmol/L (21.0-32.0); Calcium 9.1 mg/dL (8.5-10.1); Chloride 102 mmol/L (98-107); Glucose 109 mg/dL (74-106); Potassium 3.8 mmol/L (3.5-5.1); Sodium 139 mmol/L (136-145); Total Protein 7.9 g/dL (6.4-8.2)
[2021-10-31] MEDS: Normal Saline 1,000 ML 1000 ML IV (09:22)
[2021-10-31] MEDS: PIPERACILLIN/TAZO 3.375 GM in Normal Saline 50 ML IVPB (10:00)
--- NOTE | 2021-10-31 10:29 | NUR.NOTE ---
Nursing Note: [facility] for elias-rectal abscess within 1 week. JEREL Degroot
--- NOTE | 2021-10-31 14:57 | W.SURGCON ---
Date of service: 10/31/21 Time of Service: 09:15 Assessment and Plan Assessment and plan (1) Julia-rectal abscess: Status: Acute Assessment and plan: B.i.d. Sitz baths, importance of hygiene discussed with patient. Stool softeners to help with bowel movements and discomfort. patient was given the option of inpatient stay and operative exploration versus outpatient trial of oral antibiotics since the abscess is draining on its own. Patient elected to attempt outpatient antibiotics after receiving a dose of IV antibiotics in the emergency department. Return precautions were discussed at length with the patient as well as my continued availability should he not improve at home. History of Present Illness Narrative: 40-year-old male who came to the emergency department complaining of perirectal discomfort and drainage for the last several days. Patient reports he initially felt pain which was somewhat relieved with the drainage that started spontaneously. He has had continued discomfort which prompted his trip to the emergency department. Basic laboratory studies reveal a leukocytosis of 17,000. A CAT scan was done revealing a 3 cm x 3 cm x 4 cm perirectal abscess. I was asked to see the patient in regard to the above.he denies any fevers, chills, nausea, vomiting, previous history of perirectal abscesses or any other skin infections.He denies having any bowel movements in the last several days and has not use any stool softeners.He does report that he has been using antibiotic ointment in the area and has been keeping it moist. The skin has started to break down which has caused pain from the moisture. He reports that he has a sister with Crohn?s disease but has never had any signs or symptoms. He did undergo an appendectomy what does not remember anything abnormal from the pathology. Consults Consult date: 10/31/21 Requesting physician: Farhat Draper Review of Systems Constitutional Constitutional: Reports system reviewed and no additional complaints, except as documented Cardiovascular Cardiovascular: Reports system reviewed and no additional complaints, except as documented Gastrointestinal Gastrointestinal: Reports system reviewed and no additional complaints, except as documented Integumentary/Breasts Skin/Breast: Reports furuncle (perirectal) [facility] All Active Problems (Updated 10/31/21 @ 10:28 by Catherine Branch) Julia-rectal abscess (Acute) Medical History Abscess, groin Acute low back pain Arthralgia Chronic low back pain Degenerative disc disease, lumbar 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 Myalgia Patellofemoral syndrome Sleep disturbance Tobacco dependence Surgical History History of appendectomy Social History Smoking/Tobacco Use Status: Current every day Tobacco Type: cigarettes Smoking risk assessment performed?: Yes Alcohol Intake: current Alcohol Intake frequency: holidays/special occasions only Drug use: Occasionally Substance use type: marijuana Details: recreational and pain management cannabis use Do you feel safe at home: Yes Do you feel safe in your relationship?: Yes Exam Const General: cooperative, comfortable and no acute distress Nutritional Appearance: obese Resp Effort & Inspection: normal respiratory effort and able to speak in complete sentences Cardio Rate: regular rate Rhythm: regular rhythm GI Inspection: normal to inspection Palpation: soft Percussion: normal to percussion Rectal Exam: normal sphincter tone, tenderness (anterior midline) and other (skin macerated, small amount of drainage present ) Skin Wounds: wounds noted (perirectal skin maceration) Results Last Vital Signs Temp 97.0 F L 10/31/21 10:45 Pulse 88 10/31/21 10:45 Resp 16 10/31/21 10:45 BP 119/68 10/31/21 10:45 Pulse Ox 96 10/31/21 10:45 Labs Result diagrams: 10/31/21 08:37 10/31/21 08:37 Labs: Laboratory Results - last 24 hr 10/31/21 10/31/21 08:37 08:37 WBC 17.86 H RBC 5.21 Hgb 15.7 Hct 46.9 MCV 90.0 MCH 30.1 MCHC 33.5 RDW 13.3 Plt Count 341 MPV 9.2 Immature Gran % 0.6 Neutrophils % 75.8 Lymphocytes % 15.5 Monocytes % 7.6 Eosinophils % 0.2 Basophils % 0.3 Nucleated RBC % 0 Absolute Neutrophils 13.54 H Absolute Lymphocytes 2.77 Absolute Monocytes 1.36 H Absolute Eosinophils 0.04 Absolute Basophils 0.05 Sodium 139 Potassium 3.8 Chloride 102 Carbon Dioxide 28.8 Anion Gap 8.2 BUN 13 Creatinine 1.0 Estimated GFR/1.73 m2 >= 60.00 Glucose 109 H Calcium 9.1 Total Bilirubin 0.5 AST 15 ALT 39 Alkaline Phosphatase 143 H Total Protein 7.9 Albumin 3.9
== END 2021-10-31 12:42 | disposition home or self-care (01) ==
PROVIDERS: Emergency Provider Registered Nurse Emergency; PCP Nurse Practitioner Family
DX: K61.1 Rectal abscess (principal)
CPT/HCPCS: 36415; 80053; 96361; 96365; 96375; 99285; 72193; 85025; 99284; J2405; J2543; J3490

== ENCOUNTER 2022-05-10 15:44 | Emergency (ER) | payer MEDICAID, SELFPAY ==
[2022-05-10 15:54] VITALS: BP 109/75; PULSE 120; RESP 18; TEMP 36.8; O2SAT 95
--- NOTE | 2022-05-10 16:44 | ED.GENADUL_ITS ---
Discharge Plan Disposition Patient Disposition: HOME Condition: Stable Discharge Details Clinical Impression: Acute exacerbation of chronic low back pain Primary Care Provider: Araceli Bowers ED Provider: Alexey Paige Home Meds and New Rx's Prescriptions: Continued gabapentin 600 mg tablet 600 mg PO TID 30 Days Qty: 90 11RF Rx Instructions: no abrupt cessation meloxicam 15 mg Tablet 15 mg PO DAILY oxycodone-acetaminophen [Percocet] 5-325 mg tablet 1 tab PO Q6H PRN (Reason: pain) Qty: 7 0RF Rx Instructions: Take with Food, NO driving or operating heavy machinery Discharge Instructions Instructions: Low Back Strain (ED) Additional Instructions: If you have significant worsening of your symptoms you should return for reassessment. Continue to take your daily medications as prescribed. Avoid lifting bending or twisting activities. Referrals: Araceli Bowers [Primary Care Provider] - 1 week (If not improving) Discharge Data Discharge Date/Time-TO BE ENTERED AT DEPARTURE: 05/10/22 16:58 Medical Decision Making Patient presenting to the emergency department for chief complaint of back pain. Patient has chronic low back pain but today he bent over to picker packer an object and felt his back started tightening up. Patient denies any radiation of pain. Patient here for back pain. LOW risk for ABDOMINAL AORTIC ANEURYSM, CAUDA EQUINA SYNDROME, EPIDURAL MASS LESION, Severe SPINAL STENOSIS, OR HERNIATED DISK CAUSING SEVERE STENOSIS, thus I consider the discharge disposition reasonable. Patient does report in the past he has received IM ketorolac which has significantly helped with his symptoms. Patient is on meloxicam daily and discussed risk versus benefit of this with patient which he is agreeable to receiving 1 IM injection which I feel is safe. We have discussed the diagnosis and risks, and we agree with discharging home to follow-up with their primary doctor. We also discussed returning to the Emergency Department immediately if new or worsening symptoms occur. We have discussed the symptoms which are most concerning (e.g., saddle anesthesia, urinary or bowel incontinence or retention, changing or worsening pain) that necessitate immediate return. After discussion of diagnosis and plan of care patient has no further needs, questions, or concerns and states clear understanding to return to the emergency department for any worsening symptoms. This documentation was generated using [employer] system, please disregard any oddities of phrase or misspellings. HPI General Mode of arrival: ambulatory . Date/Time Provider Initiated Documentation: 05/10/22 16:33 . Limitations to Documentation: no limitations . Information obtained by: patient, RN notes reviewed and old records reviewed . History of Present Illness 41 year old M presents to the emergency department with the chief complaint of back pain, described as severe and similar to prior episodes, with intensity rated at 9. Quality is described as sharp, and is localized to the back. Patient reports no radiation. Patient started experiencing this hour(s) (4) and it has been constant. No relieving factors improve symptom(s), Movement worsens symptoms . Patient notes no other symptoms.. Related Data Home Medications Medication Instructions Recorded Confirmed meloxicam 15 mg tablet 15 mg PO DAILY 11/05/19 05/10/22 gabapentin 600 mg tablet 600 mg PO TID 30 days #90 tabs 02/28/20 05/10/22 oxycodone-acetaminophen 5 mg-325 1 tab PO Q6H PRN pain #7 tabs 10/31/21 11/12/21 mg tablet (Percocet) Previous Rx's Medication Instructions Recorded gabapentin 600 mg tablet 600 mg PO TID 30 days #90 tabs 02/28/20 oxycodone-acetaminophen 5 mg-325 1 tab PO Q6H PRN pain #7 tabs 10/31/21 mg tablet (Percocet) Allergies Allergy/AdvReac Type Severity Reaction Status Date / Time No Known Allergies Allergy Unverified 05/10/22 15:56 General Stated Complaint: Nk/Back Pain KAMARI: 4 Review of Systems Constitutional Constitutional: Denies chills and Denies fever(s) Cardiovascular Cardiovascular: Denies chest pain and Denies dyspnea on exertion Respiratory Respiratory: Denies cough and Denies dyspnea on exertion Gastrointestinal Gastrointestinal: Denies abdominal pain, Denies change in bowel habits, Denies diarrhea, Denies nausea and Denies vomiting Genitourinary Genitourinary: Denies difficulty urinating and Denies urinary incontinence Musculoskeletal Musculoskeletal: Reports as per HPI and Reports back pain Neurologic Neurologic: Denies sensory deficit PFSH All Active Problems (Updated 05/10/22 @ 16:45 by Alexey Paige NP) Acute exacerbation of chronic low back pain (Acute) Medical History Abscess, groin Acute low back pain Arthralgia Chronic low back pain Degenerative disc disease, lumbar 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 Myalgia Patellofemoral syndrome Sleep disturbance Tobacco dependence Surgical History History of appendectomy Social History Smoking/Tobacco Use Status: Former Tobacco Use Smoking risk assessment performed?: Yes Alcohol Intake: current Alcohol Intake frequency: holidays/special occasions only Drug use: Occasionally Substance use type: marijuana Details: recreational and pain management cannabis use Do you feel safe at home: Yes Do you feel safe in your relationship?: Yes Exam Const General: cooperative and no acute distress Orientation: alert, awake and oriented x3 Neck Neck: normal visual inspection, full ROM and no meningeal signs Resp Effort & Inspection: normal respiratory effort Auscultation: clear to auscultation bilaterally Cardio Rate: regular rate Rhythm: regular rhythm Heart Sounds: S1 normal and S2 normal Back/Spine/Pelvis Thoracic/Lumbar Spine: pain with thoraco-lumbar ROM and thoraco-lumbar ROM limited Neuro General: patient alert, patient awake and patient oriented x3 DTR's: Rt Patellar: 2+ and Lt Patellar: 2+ Course Vital Signs Vital signs: Vital Signs Temperature 36.8 C 05/10/22 15:54 Pulse 120 H 05/10/22 15:54 Respiratory Rate 18 05/10/22 15:54 Blood Pressure 109/75 05/10/22 15:54 Pulse Oximetry 95 05/10/22 15:54 Temperature 36.8 C 05/10/22 15:54 Temperature Source Temporal Artery Scan 05/10/22 15:54 Pulse 120 H 05/10/22 15:54 Respiratory Rate 18 05/10/22 15:54 Respiratory Effort Non-Labored 05/10/22 15:58 Blood Pressure 109/75 05/10/22 15:54 Blood Pressure Position Sitting 05/10/22 15:54 Pulse Oximetry 95 05/10/22 15:54 Oxygen Delivery Method Room Air 05/10/22 15:54 Oxygen Flow Rate 0 05/10/22 15:54 PAWSS Have you Been Recently Intoxicated or Drunk Within the Last 30 days?: No Have you Ever Experienced Previous Episodes of Alcohol Withdrawal?: No Have you ever Experienced Withdrawal Seizures?: No Have you ever Experienced Delirium Tremens(DT)s?: No Have you ever undergone Alcohol Rehabilitation Treatment (i.e, inpt ot outpatient treatment programs)?: No Have you ever Experienced Blackouts?: No Have you ever Combined Alcohol with other Downers within the last 90 days?: No Have you ever Combined Alcohol with any other Substance of Abuse during the last 90 days?: No Positive Blood Alcohol level on Presentation? [PCS.BAL]: No Evidence of Increased Autonomic Activity (i.e. HR>120, tremor, sweating, agitation, nausea)?: No Result: 0
[2022-05-10] MEDS: Ketorolac 60 MG/2 ML VIAL IM (16:52)
[2022-05-10] MEDS: Cyclobenzaprine 10 MG TAB, 3 TABS/BTL PO (16:53)
== END 2022-05-10 16:58 | disposition home or self-care (01) ==
PROVIDERS: Emergency Provider Nurse Practitioner Family; PCP Nurse Practitioner Family
DX: M54.50 Low back pain, unspecified (principal); G89.29 Other chronic pain
CPT/HCPCS: 96372; 99284; 99283; J1885

== ENCOUNTER 2022-07-29 07:38 | Outpatient (CLI) | payer MEDICAID, SELFPAY ==
--- NOTE | 2022-07-29 06:00 | DI.RAD_ITS ---
Exam(s) XR PAIN CLINIC LUMBAR SP 2V EXAM: XR PAIN CLINIC LUMBAR SP 2V CLINICAL HISTORY: Dx: Lumbar Radiculopathy. TECHNIQUE: Fluoroscopy was provided for the referring physician for guidance with performing pain cl inic injection procedure. COMPARISON: No exams were available for comparison FINDINGS: Please see procedure note for details. Fluoro time: 22.4 seconds RADIATION DOSE DELIVERED: Ka,r=15.91 mGy
[2022-07-29 07:49] VITALS: BP 113/75; PULSE 95; RESP 20; TEMP 36.9; O2SAT 100
--- NOTE | 2022-07-29 08:24 | PDOC.PAIN_ITS ---
Pain Clinic Procedure Note Procedure Note Procedure Note: Lumbar Epidural Steroid Injection Procedure Note COMMENTS:He had 8-9 months of relief with his last LESI. His pain returned about 3 weeks ago. Pre-procedure pain VAS = 3/10 Dx: Lumbosacral radiculopathy Michael Leiva has been referred to the [facility] for lumbar epidural steroid injection. The patient was greeted by the nurse who verified patients name and . Patient was then taken to the fluoroscopy suite. The patient was interviewed and the medial record reviewed. There were no medical, pharmacologic, radiographic, or other structural contraindications to attempting fluoroscopically guided lumbar epidural steroid injection. Risks and expected side effects as well as potential benefits of the procedure were reviewed and voiced concerns expressed. The patient consent form was signed and witnessed. Standard patient time-out procedure was performed. The patient was placed in the prone position on the fluoroscopy table and automated blood pressure cuff and pulse oximeter applied. The skin entry point for entering/approaching the epidural space at L5-S1 and marked. Following thorough chlorhexadine preparation of the skin and draping and 1% lidocaine infiltration of the skin entry point and subcutaneous tissues, a 18 gauge Touhy needle was placed under fluoroscopic guidance and with loss of resistance technique into the epidural space. Needle tip placement and depth were aided and confirmed by fluoroscopy. There was no paresthesia or return of blood or CSF through the needle. 1 cc's of Omnipaque 240 was injected with clear epidural spread confirmed with fluoroscopy. 80mg depomedrol was injected. There was not any unusual discomfort expressed by Michael Leiva. Patient's vital signs were stable throughout the procedure and were as recorded in nursing records. Follow up plans and appointments were discussed with patient. Post procedure instruction was given as documented in nursing records and having met discharge criteria and was discharged from the [facility]. COMMENTS: If this procedure is helpful, it can be completed up to 3 times per 12 months. Post-procedure pain VAS = 0/10. Eduardo Pope DO, MPH [facility]-Pain Management [facility]-Center for Pain Management
[2022-07-29] MEDS: methylPREDNISolone ACETATE 80 MG/ML VIAL IJ (08:25)
[2022-07-29] MEDS: Omnipaque 240 MG/ML 50 ML BTL IJ (08:25)
[2022-07-29 08:31] VITALS: BP 135/83; PULSE 88; RESP 17; O2SAT 95
== END 2022-07-29 07:39 | disposition home or self-care (01) ==
LOC: PC 07:39
PROVIDERS: PCP Nurse Practitioner Family; Visit Provider Preventive Medicine Occupational Medicine
DX: M54.17 Radiculopathy, lumbosacral region (principal)
CPT/HCPCS: 62323; 72100; J1040; Q9967

== ENCOUNTER 2022-09-30 06:10 | Emergency (ER) | payer MEDICAID, SELFPAY ==
[2022-09-30 06:12] VITALS: BP 111/89; PULSE 93; RESP 20; TEMP 36.2; O2SAT 98
--- NOTE | 2022-09-30 06:15 | RT.EKG_ITS ---
APPROVED REPORT Exam: Resting ECG Reason for Exam: chest pain Patient Location: E HR:89 bpm ECG Measurements Heart Rate 89 AXIS SC 152 P 62 QRSd 92 QRS 57 QT 371 T 60 QTc 453 Conclusion Sinus rhythm...normal P axis, V-rate 60- 99 ST elev, probable normal early repol pattern...ST elevation, age<55 Physician: no stemi
--- NOTE | 2022-09-30 06:26 | ED.GENADUL_ITS ---
Discharge Plan Discharge Details Chief Complaint: RespSymp Clinical Impression: Influenza Primary Care Provider: Araceli Bowers ED Provider: Kin Jerez Home Meds and New Rx's Prescriptions: No Action gabapentin 600 mg tablet 600 mg PO TID 30 Days Qty: 90 11RF Rx Instructions: no abrupt cessation meloxicam 15 mg Tablet 15 mg PO DAILY oxycodone-acetaminophen [Percocet] 5-325 mg tablet 1 tab PO Q6H PRN (Reason: pain) Qty: 7 0RF Rx Instructions: Take with Food, NO driving or operating heavy machinery Medical Decision Making This is a pleasant 41-year-old male with no significant past medical history who presents today for evaluation of cough for the last 3 days, now with a small amount of bloody streaking in his sputum. He states that he was around someone who was flu positive, he has not had an opportunity to get his flu shot yet. He states that for the last 3 days he has been having cough and runny nose and congestion and aches. This morning when he woke up he noticed that his sputum was blood-streaked. He denies any large amounts of hemoptysis. He denies any. He does admit to left-sided and central chest pain. He denies any history of asthma. He does not smoke. No other complaints at this time. Physical exam demonstrates a surprisingly well-appearing male, oxygen stable, heart rate stable. Differential is highest for influenza with subsequent bronchial irritation and potential pneumonia. We will evaluate for this, give a breathing treatment, get a screening EKG, monitor closely and reassess. 1:32 AM Laboratory work-up has returned stable, patient is flu positive. Electrolytes stable. Troponin and EKG stable. Pending chest x-ray. Patient would not be a great candidate for Tamiflu secondary to his symptoms being over 72 hours. Patient will be signed out to my colleague Dr. Ferdinand Wolfe for follow-up on x- ray and reassessment. Sign Out Yes HPI General Date/Time Provider Initiated Documentation: 09/30/22 06:18 . HPI Narrative: This is a pleasant 41-year-old male with no significant past medical history who presents today for evaluation of cough for the last 3 days, now with a small amount of bloody streaking in his sputum. He states that he was around someone who was flu positive, he has not had an opportunity to get his flu shot yet. He states that for the last 3 days he has been having cough and runny nose and congestion and aches. This morning when he woke up he noticed that his sputum was blood-streaked. He denies any large amounts of hemoptysis. He denies any. He does admit to left-sided and central chest pain. He denies any history of asthma. He does not smoke. No other complaints at this time. Related Data Home Medications Medication Instructions Recorded Confirmed meloxicam 15 mg tablet 15 mg PO DAILY 11/05/19 07/29/22 gabapentin 600 mg tablet 600 mg PO TID 30 days #90 tabs 02/28/20 07/29/22 oxycodone-acetaminophen 5 mg-325 1 tab PO Q6H PRN pain #7 tabs 10/31/21 11/12/21 mg tablet (Percocet) Previous Rx's Medication Instructions Recorded gabapentin 600 mg tablet 600 mg PO TID 30 days #90 tabs 02/28/20 oxycodone-acetaminophen 5 mg-325 1 tab PO Q6H PRN pain #7 tabs 10/31/21 mg tablet (Percocet) Allergies Allergy/AdvReac Type Severity Reaction Status Date / Time No Known Allergies Allergy Unverified 07/29/22 07:46 General Stated Complaint: RespSymp KAMARI: 3 Review of Systems All systems reviewed & are unremarkable except as noted in HPI and below PFSH All Active Problems (Updated 09/30/22 @ 07:33 by Kin Jerez DO) Influenza (Acute) Medical History Abscess, groin Acute low back pain Arthralgia Chronic low back pain Degenerative disc disease, lumbar 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 Myalgia Patellofemoral syndrome Sleep disturbance Tobacco dependence Surgical History History of appendectomy Social History Smoking/Tobacco Use Status: Former Tobacco Use Smoking risk assessment performed?: Yes Alcohol Intake: current Alcohol Intake frequency: holidays/special occasions only Drug use: Occasionally Substance use type: marijuana Details: recreational and pain management cannabis use Do you feel safe at home: Yes Do you feel safe in your relationship?: Yes Exam Narrative Exam Narrative: 1.Const: Well-nourished, Well-developed, appearing stated age 2.Eyes: PERRL, no conjunctival injection, and symmetrical lids. 3.ENT: Atraumatic external nose and ears. Moist MM. Neck: Symmetric, trachea midline, No thyromegaly. 4.CVS: +S1/S2, No murmurs or gallops. Peripheral pulses 2+ and equal in all extremities. Brisk capillary refill in all extremities. 5.RESP: Unlabored respiratory effort. Clear to auscultation bilaterally. No wheezes rales or rhonchi 6.GI: Soft, Nontender/Nondistended, No hepatosplenomegaly. No guarding or rebound. 7.MSK: Normocephalic/Atraumatic, Extremities w/o deformity or ttp No cyanosis or clubbing, Normal movement of all extremities 8.Skin: Warm, Dry. No rashes or lesions. 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 Sensation grossly intact, no focal neurologic deficits. 10.Psych: (AAO) x3. Appropriate mood and affect Course Vital Signs Vital signs: Vital Signs Temperature 36.2 C L 09/30/22 06:12 Pulse 93 H 09/30/22 06:12 Respiratory Rate 20 09/30/22 06:12 Blood Pressure 111/89 09/30/22 06:12 Pulse Oximetry 98 09/30/22 06:12 Temperature 36.2 C L 09/30/22 06:12 Temperature Source Tympanic 09/30/22 06:12 Pulse 93 H 09/30/22 06:12 Respiratory Rate 20 09/30/22 06:12 Respiratory Effort Accessory Muscle Use 09/30/22 06:20 Respiratory Depth Deep 09/30/22 06:20 Blood Pressure 111/89 09/30/22 06:12 Blood Pressure Position Sitting 09/30/22 06:12 Pulse Oximetry 98 09/30/22 06:12 Oxygen Delivery Method Room Air 09/30/22 06:12 Oxygen Flow Rate 0 09/30/22 06:12 Pain Level 6 09/30/22 06:12 Comment 09/30/22 06:12
[2022-09-30 06:31] LABS: Abs Immature Grans 0.02 10^3/uL (0.0-0.06); Absolute Basophil Count 0.07 10^3/uL (0.0-0.2); Absolute Eosinophil Count 0.29 10^3/uL (0.0-0.7); Absolute Lymphocyte Count 3.95 10^3/uL (1.2-3.4); Absolute Monocyte Count 1.02 10^3/uL (0.1-0.8); Absolute Neutrophil Count 2.99 10^3/uL (1.2-6.7); Basophils % 0.8; Eosinophils % 3.5; HCT 49.5 % (40.0-50.0); HGB 16.8 g/dL (13.5-17.5); Immature Grans % 0.2; Lymphocytes % 47.4; MCH 30.3 pg (27.0-33.0); MCHC 33.9 % (32.0-36.0); MCV 89 fL (80-95); MPV 9.6 fL (8.0-11.0); Monocytes % 12.2; Neutrophils % 35.9; Platelet Count 263 10^3/uL (130-400); RBC 5.55 10^6/uL (4.36-5.78); RDW 13.6 % (11.8-14.1); RDW-SD 44.8 fL; WBC 8.34 10^3/uL (4.4-10.8)
[2022-09-30 06:37] VITALS: RESP 1; RESP 8
[2022-09-30] MEDS: Albuterol/Ipratropium 3 ML UPD VIAL UPD (06:37)
--- NOTE | 2022-09-30 06:41 | NUR.NOTE ---
Pt comes to the ED c/o upper resp symptoms, pt has been in contact with family members that have the flu, he states that he noticed bright red streaks in his sputum when he coughed. the pt has been using OTC with no relief, placed on monitor, IV and labs done. EKG done pt given neb tx, aware of POC Nursing Note:
[2022-09-30 06:53] LABS: ALT 49 U/L (16-63); AST 30 U/L (15-37); Albumin 4.2 g/dL (3.4-5.0); Alkaline Phosphatase 115 U/L (46-116); Anion Gap 10.6 mmol/L (3-11); BUN 21 mg/dL (7-18); Bilirubin, Total 0.4 mg/dL (0.2-1.0); CO2 29.4 mmol/L (21.0-32.0); CREATININE 1.1 mg/dL (0.70-1.30); Calcium 9.3 mg/dL (8.5-10.1); Chloride 102 mmol/L (98-107); Estimated GFR 85.42 (mL/min/1.73m2); Glucose 138 mg/dL (74-106); Potassium 4.3 mmol/L (3.5-5.1); Sodium 142 mmol/L (136-145); Total Protein 8.2 g/dL (6.4-8.2); Troponin I < 50 ng/L (<or=60)
[2022-09-30 07:15] LABS: COVID-19 PCR Negative (Negative); Influenza B PCR Negative (Negative); RSV PCR Negative (Negative)
[2022-09-30 07:19] LABS: Source Nasopharynx
[2022-09-30 07:20] LABS: Influenza A PCR Positive (Negative)
--- NOTE | 2022-09-30 07:31 | DI.RAD_ITS ---
Exam(s) XR PORTABLE CHEST AP EXAM: XR PORTABLE CHEST AP CLINICAL HISTORY: cough, bloody sputum, flu. TECHNIQUE: 2D digital imaging was performed. COMPARISON: CR CHEST 2 VIEWS PA,LAT from 05/29/2010 FINDINGS: LUNGS: Clear. No pleural abnormality seen. HEART: Normal. MEDIASTINUM: Normal. OTHER FINDINGS: None. IMPRESSION: No acute pulmonary findings. DATA REPOSITORY: RADIATION DOSE DELIVERED: Total DLP
== END 2022-09-30 08:07 | disposition home or self-care (01) ==
PROVIDERS: Emergency Provider Student in an Organized Health Care Education/Training Program; PCP Nurse Practitioner Family
DX: J10.1 Influenza due to other identified influenza virus with other respiratory manifestations (principal); Z20.822 Contact with and (suspected) exposure to COVID-19
CPT/HCPCS: 80053; 87637; 93005; 94640; 99283; 71045; 84484; 85025; 93010; 99285; J7620

== ENCOUNTER 2022-12-23 10:59 | Outpatient (CLI) | payer MEDICAID, SELFPAY ==
--- NOTE | 2022-12-23 06:00 | DI.RAD_ITS ---
Exam(s) XR PAIN CLINIC LUMBAR SP 2V EXAM: XR PAIN CLINIC LUMBAR SP 2V CLINICAL HISTORY: Dx: Lumbar Radiculopathy TECHNIQUE: 2D and realtime digital imaging was performed. CONTRAST MATERIAL: Refer to procedure report. COMPARISON: No exams were available for comparison FINDINGS: Fluoroscopy was provided for Dr. Pope for pain management therapy please refer to the procedure repo rt for complete details. Ka,r=13.8 mGy IMPRESSION:
[2022-12-23 11:08] VITALS: BP 118/82; PULSE 95; RESP 14; TEMP 37.1; O2SAT 97
[2022-12-23 11:45] VITALS: BP 139/69; PULSE 68; RESP 20; O2SAT 98
[2022-12-23] MEDS: Omnipaque 240 MG/ML 50 ML BTL IJ (11:47)
[2022-12-23] MEDS: methylPREDNISolone ACETATE 80 MG/ML VIAL IJ (11:47)
--- NOTE | 2022-12-23 12:03 | PDOC.PAIN_ITS ---
Date of service: 12/23/22 Time of Service: 12:05 Pain Clinic Procedure Note Procedure Note Procedure Note: Lumbar Epidural Steroid Injection Procedure Note COMMENTS:His last LESI was on 07/27/22 and he states 85% improvement in pain and ability to function for 4+ months. Dx: Lumbosacral radiculopathy Pre-procedure pain VAS was 2/10 Michael Leiva has been referred to the [facility] for lumbar epidural steroid injection. The patient was greeted by the nurse who verified patients name and . Patient was then taken to the fluoroscopy suite. The patient was interviewed and the medial record reviewed. There were no medical, pharmacologic, radiographic, or other structural contraindications to attempting fluoroscopically guided lumbar epidural steroid injection. Risks and expected side effects as well as potential benefits of the procedure were reviewed and voiced concerns expressed. The patient consent form was signed and witnessed. Standard patient time-out procedure was performed. The patient was placed in the prone position on the fluoroscopy table and automated blood pressure cuff and pulse oximeter applied. The skin entry point for entering/approaching the epidural space at L5-S1 and marked. Following thorough chlorhexadine preparation of the skin and draping and 1% lidocaine infiltration of the skin entry point and subcutaneous tissues, a 18 gauge Touhy needle was placed under fluoroscopic guidance and with loss of resistance technique into the epidural space. Needle tip placement and depth were aided and confirmed by fluoroscopy. There was no paresthesia or return of blood or CSF through the needle. 1 cc's of Omnipaque 240 was injected with clear epidural spread confirmed with fluoroscopy. 80mg depomedrol was injected. There was not any unusual discomfort expressed by Michael Leiva. Patient's vital signs were stable throughout the procedure and were as recorded in nursing records. Follow up plans and appointments were discussed with patient. Post procedure instruction was given as documented in nursing records and having met discharge criteria and was discharged from the [facility] Management Center. COMMENTS: If this procedure is helpful, it can be completed up to 3 times per 12 months. Post-procedure pain VAS was 2/10. He will re-start his home exercise program in 2 days. Eduardo Pope DO, MPH [facility]-Pain Management [facility]-Center for Pain Management
== END 2022-12-23 11:00 | disposition home or self-care (01) ==
LOC: PC 10:59
PROVIDERS: PCP Nurse Practitioner Family; Visit Provider Preventive Medicine Occupational Medicine
DX: M54.17 Radiculopathy, lumbosacral region (principal)
CPT/HCPCS: 62323; 72100; J1040; Q9967

== ENCOUNTER → 2024-02-14 02:40 | Outpatient (CLI) | payer MEDICAID, SELFPAY ==
--- NOTE | 2024-02-14 06:30 | DI.MRI_ITS ---
Exam(s) MR LUMBAR SPINE WO EXAM: MR LUMBAR SPINE WO CLINICAL HISTORY: Low back pain with pain radiating down the legs.lumbar radiculitis, m54.16. TECHNIQUE: Multiplanar multisequence MRI of the Lumbar spine was performed. COMPARISON: MR MRI LUMBAR WO from 09/06/2020 FINDINGS: Bones: The last intervertebral disc space is designated the L5/S1 level for the numbering purpose of this examination. The vertebral body heights are well maintained. Alignment is satisfactory. Mild d egenerative endplate signal changes are present. There are few scattered round foci of hyperintense T1 and T2 signal in the vertebral bodies likely reflecting small fatty rest or hemangioma. Cord: The conus tip ends at the L1 level. It is of normal size and signal intensity. T12-L1: No disc herniations or bulges are present. No central spinal canal or neural foraminal stenos is. L1-2: No disc herniations or bulges are present. No central spinal canal or neural foraminal stenosis . L2-3: There is a mild diffuse disc bulge and mild narrowing of the central spinal canal. There is mi ld narrowing of the left neural foramen. No significant right neural foraminal stenosis. L3-4: There is a mild diffuse disc bulge slightly eccentric to the right. There is minimal narrowing of the central spinal canal. There is mild narrowing of the neural foramen bilaterally. L4-5: There is a diffuse disc bulge. There are mild hypertrophic changes of the facets. There is mi ld narrowing of the central spinal canal. No significant neural foraminal stenosis is seen. L5-S1: There is a diffuse disc bulge and a right paracentral disc herniation at this level. There is extension into the right neural foramen compressing the exiting right L5 nerve root and causing anne ed right neural foraminal stenosis. There are degenerative changes of the facets. There is mild lef t neural foraminal stenosis. No significant central spinal canal stenosis is seen. There is mild di splacement of the right S1 nerve root secondary to the disc herniation. Soft tissues: The visualized SI joints and sacrum are well maintained. The paraspinal soft tissues ar e unremarkable. IMPRESSION: 1. Findings at L5-S1 including a right paracentral disc herniation with extension into the right neur al foramen. There is marked right neural foraminal stenosis. 2. Multilevel degenerative changes as described above with findings at L2-3 through L4-L5. DATA REPOSITORY:
== END ==
PROVIDERS: Visit Provider Preventive Medicine Occupational Medicine
DX: M54.16 Radiculopathy, lumbar region (principal)
CPT/HCPCS: 72148

== ENCOUNTER 2024-03-22 14:37 | Outpatient (CLI) | payer MEDICAID, SELFPAY ==
--- NOTE | 2024-03-22 06:00 | DI.RAD_ITS ---
Exam(s) XR PAIN CLINIC LUMBAR SP 2V EXAM: XR PAIN CLINIC LUMBAR SP 2V CLINICAL HISTORY: DX: Lumbar radiculopathy TECHNIQUE: 2D and realtime digital imaging was performed. CONTRAST MATERIAL: Refer to procedure report. COMPARISON: No exams were available for comparison FINDINGS: Fluoroscopy was provided for Dr. Pope during the performance of a lumbar epidural steroid injection. Please refer to the procedure report for complete details. Ka,r=9.71 mGy IMPRESSION: RADIATION DOSE DELIVERED: 0.0 0.0 0
[2024-03-22 14:47] VITALS: BP 136/85; PULSE 86; RESP 20; TEMP 36.7; O2SAT 98
--- NOTE | 2024-03-22 15:23 | PDOC.PAIN_ITS ---
Date of service: 03/22/24 Time of Service: 15:23 Pain Managment Procedure Note Procedure Note Procedure Note: PROCEDURE NOTE LUMBAR EPIDURAL STEROID INJECTION Date of Service: March 22, 2024 Patient:Michael Diaz? Provider: Eduardo Mills DO, MPH Michael Leiva has been referred to the [facility] for a lumbar epidural steroid injection. Pre-operative diagnosis: Lumbosacral Radiculopathy Post-operative diagnosis: Same Pre-Procedure Pain: VAS= 4 /10 Comments: He had an office visit with me on 02/23/24 and his symptoms are unchanged. he last had this procedure on 12/23/2022 with >6 months of >50% improvement in pain. Michael was interviewed and the medical record was reviewed.? There were no medical, pharmacologic, radiographic or other structural contraindications to attempting fluoroscopically guided Lumbar epidural steroid injection.? Risks, potential side effects, indications, and potential benefits of the procedure were reviewed with Michael.? Questions and concerns were addressed.? After it was clear that Michael was fully informed about the procedure, the printed consent form was signed by the patient and myself.? Michael was placed in the prone position on the fluoroscopy table and automated blood pressure cuff and pulse oximeter applied. The skin entry point for entering/approaching the epidural space for the lumbar epidural steroid injection was marked. Following thorough chlorhexadine preparation of the skin and draping and 1% lidocaine infiltration of the skin entry point and subcutaneous tissues, an 18 gauge Touhy needle was placed and advanced under fluoroscopic guidance and with loss of resistance technique into the L5-S1 epid ural space. Needle tip placement and depth were aided and confirmed by fluoroscopy. There was no paresthesia or return of blood or CSF through the needle. 1 mls of Omnipaque 240 was injected with clear epidural spread confirmed with fluoroscopy. 80 mg of Depo-Medrol was? injected. This was followed by 1 ml of preservative-free normal saline to flush the steroid out of the needle. There was no unusual discomfort expressed by Michael. The needle was withdrawn without difficulty. (49 mls of Omnipaque was wasted) Michael was observed and was without hemodynamic, neurologic, or allergic reactions.? Fluoroscopic images were digitally archived. Michael's vital signs were stable throughout the procedure and were as recorded in nursing records. Follow up plans and appointments were discussed with Michael. Post procedure instruction was given as documented in nursing records and having met discharge criteria Michael was discharged from the [facility]. COMMENTS: No apparent complications. Post-procedure pain: VAS= 4/10. Michael to contact [facility] as needed. If at least 50% improvement in pain and/or function for at least 3 months is achieved, this procedure can be repeated. I personally performed this entire procedure. EDUARDO MILLS DO, MPH ABPMR-subspecialty board certification in Pain Medicine [facility]
[2024-03-22 15:40] VITALS: BP 152/89; PULSE 87; RESP 22; O2SAT 94
[2024-03-22] MEDS: Omnipaque 240 MG/ML 50 ML BTL IJ (15:44)
[2024-03-22] MEDS: Epidural Tray 1 EACH MC (15:44)
[2024-03-22] MEDS: methylPREDNISolone ACETATE 80 MG/ML VIAL IJ (15:45)
== END 2024-03-22 14:38 | disposition home or self-care (01) ==
LOC: PC 14:38
PROVIDERS: PCP Physician Assistant; Visit Provider Preventive Medicine Occupational Medicine
DX: M54.17 Radiculopathy, lumbosacral region (principal)
CPT/HCPCS: 62323; 72100; J1010; Q9967

== ENCOUNTER 2024-06-16 11:47 | Emergency (ER) | payer MEDICAID, SELFPAY ==
[2024-06-16 11:48] VITALS: BP 144/83; PULSE 114; RESP 18; TEMP 36.3; O2SAT 96
[2024-06-16] MEDS: Lidocaine 5% Patch 1 PATCH TP (12:28)
[2024-06-16] MEDS: Dexamethasone 4 MG TAB 8 MG PO (12:28)
[2024-06-16] MEDS: Ibuprofen 600 MG TAB PO (12:28)
[2024-06-16] MEDS: oxyCODONE 10 MG TAB PO (12:28)
[2024-06-16] MEDS: Acetaminophen 500 MG TAB 1000 MG PO (12:28)
[2024-06-16] MEDS: Methocarbamol 500 MG TAB 1000 MG PO (12:50)
--- NOTE | 2024-06-16 16:04 | ED.GENADUL_ITS ---
Discharge Plan Disposition Patient Disposition: Home Condition: Stable Discharge Details Clinical Impression: Lumbar back pain Primary Care Provider: Dipesh Mccartney ED Provider: Josafat Al Home Meds and New Rx's Prescriptions: New methocarbamol 750 mg tablet 750 mg PO TID Qty: 20 0RF No Action celecoxib [Celebrex] 100 mg capsule 100 mg PO DAILY gabapentin 600 mg tablet 600 mg PO TID 30 Days Qty: 90 11RF Rx Instructions: no abrupt cessation bisacodyl [Dulcolax (bisacodyl)] 5 mg tablet,delayed release (DR/EC) 5 mg PO ONCE Qty: 4 0RF Rx Instructions: Take per colonoscopy instructions provided by ordering providers office polyethylene glycol 3350 17 gram/dose powder 17 g PO ONCE Qty: 238 0RF Rx Instructions: Take per colonoscopy instructions provided by ordering providers office Discharge Instructions Instructions: Chronic pain Additional Instructions: * Continue medication as needed * please keep primary care follow-up appointment * Reach out to pain management for reevaluation of ongoing symptoms * return to the emergency department if you develop numbness weakness Or incontinence of bowel or bladder HPI General Date/Time Provider Initiated Documentation: 06/16/24 11:59 . Limitations to Documentation: no limitations . Information obtained by: patient . HPI Narrative: 43-year-old gentleman with past medical history of chronic back pain presents for evaluation of worsening back pain. Pain is localized to the lower back. Not associated with any recent trauma fall or other injury. Reports that he has had worsening of his pain over the last 3 days. Not associated with fever. No urinary or bowel changes. Pain does not radiate down his legs as it has in the past. No numbness weakness. No weakness with walking, but does have significant pain with walking he has been taking his gabapentin and his celecoxib without relief. Related Data Home Medications ?Medication ?Instructions ?Recorded ?Confirmed gabapentin 600 mg tablet 600 mg PO TID 30 days #90 tabs 02/28/20 06/16/24 celecoxib 100 mg capsule (Celebrex) 100 mg PO DAILY 02/23/24 06/16/24 bisacodyl 5 mg tablet,delayed 5 mg PO ONCE #4 tabs 05/11/24 06/16/24 release (Dulcolax (bisacodyl)) polyethylene glycol 3350 17 17 g PO ONCE #238 grams 05/11/24 06/16/24 gram/dose oral powder methocarbamol 750 mg tablet 750 mg PO TID #20 tabs 06/16/24 Previous Rx's ?Medication ?Instructions ?Recorded gabapentin 600 mg tablet 600 mg PO TID 30 days #90 tabs 02/28/20 bisacodyl 5 mg tablet,delayed 5 mg PO ONCE #4 tabs 05/11/24 release (Dulcolax (bisacodyl)) polyethylene glycol 3350 17 17 g PO ONCE #238 grams 05/11/24 gram/dose oral powder methocarbamol 750 mg tablet 750 mg PO TID #20 tabs 06/16/24 Allergies Allergy/AdvReac Type Severity Reaction Status Date / Time No Known Allergies Allergy Unverified 06/16/24 11:50 General Stated Complaint: Nk/Back Pain KAMARI: 3 Exam Narrative Exam Narrative: Review of Systems: All systems reviewed & are unremarkable except as noted in HPI and below Well-developed, obese Laying on the left side RRR Unlabored respiratory effort Nondistended abdomen Midline back without tenderness, step-off normal sensation and strength in bilateral lower extremities Course Vital Signs Vital signs: Vital Signs Temperature 36.3 C L 06/16/24 11:48 Pulse 114 H 06/16/24 11:48 Respiratory Rate 18 06/16/24 11:48 Blood Pressure 144/83 H 06/16/24 11:48 Pulse Oximetry 96 06/16/24 11:48 Temperature 36.3 C L 06/16/24 11:48 Pulse 114 H 06/16/24 11:48 Respiratory Rate 18 06/16/24 11:48 Respiratory Effort Normal, Non-Labored 06/16/24 11:51 Blood Pressure 144/83 H 06/16/24 11:48 Blood Pressure Position Sitting 06/16/24 11:48 Pulse Oximetry 96 06/16/24 11:48 Medical Decision Making Emergent evaluation of acute on chronic back pain. Patient has seen pain management and had a recent injection, but reports worsening of pain today. Denies any trauma that may have incited the worsening of pain. Denies any IV drug use. Denies history of malignancy. Denies any fever. No considerable red flags. The patient has no neurologic symptoms so I doubt any acute spinal cord pathology. Medications were given for symptom relief and the patient was reevaluated. He was found to be sleeping comfortably and he was able to roll over onto his back and get up without significant discomfort. He will be discharged with a prescription of Robaxin. Recommended to continue his medications that he takes at home for pain, follow-up with his primary care provider for reevaluation and touch base with pain management for further recommendations. 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 Degenerative disc disease, lumbar Acute low back pain Chronic low back pain Sleep disturbance Tobacco dependence Patellofemoral syndrome Myalgia Arthralgia Abscess, groin Surgical History History of appendectomy Social History Smoking/Tobacco Use Status: Current every day Tobacco Type: cigarettes Smoking packs per day: 0.5 Smoking cigarettes per day: 10.0 Smoking risk assessment performed?: Yes Alcohol Intake: current Alcohol Intake frequency: a few times a month Drug use: Daily Substance use type: marijuana Details: recreational and pain management cannabis use Do you feel safe at home: Yes Do you feel safe in your relationship?: Yes PAWSS Have you Been Recently Intoxicated or Drunk Within the Last 30 days?: No Have you Ever Experienced Previous Episodes of Alcohol Withdrawal?: No Have you ever Experienced Withdrawal Seizures?: No Have you ever Experienced Delirium Tremens(DT)s?: No Have you ever undergone Alcohol Rehabilitation Treatment (i.e, inpt ot outpatient treatment programs)?: No Have you ever Experienced Blackouts?: No Have you ever Combined Alcohol with other Downers within the last 90 days?: No Have you ever Combined Alcohol with any other Substance of Abuse during the last 90 days?: No Positive Blood Alcohol level on Presentation? [PCS.BAL]: No Evidence of Increased Autonomic Activity (i.e. HR>120, tremor, sweating, agitation, nausea)?: No Result: 0
== END 2024-06-16 13:15 | disposition home or self-care (01) ==
PROVIDERS: Emergency Provider Emergency Medicine; PCP Physician Assistant
DX: M54.50 Low back pain, unspecified (principal); F17.210 Nicotine dependence, cigarettes, uncomplicated
CPT/HCPCS: 99283; J8540

== ENCOUNTER 2024-07-05 15:47 | Outpatient (REF) | payer MEDICAID, SELFPAY ==
[2024-07-05 15:40] LABS: Hemoglobin A1C 5.5 % (<5.7)
[2024-07-05 16:17] LABS: ALT 42 U/L (16-63); AST 21 U/L (15-37); Albumin 4.3 g/dL (3.4-5.0); Alkaline Phosphatase 112 U/L (46-116); Anion Gap 6.6 mmol/L (3-11); BUN 14 mg/dL (7-18); Bilirubin, Total 0.48 mg/dL (0.2-1.0); CO2 31.4 mmol/L (21.0-32.0); CREATININE 1.1 mg/dL (0.70-1.30); Calcium 9.4 mg/dL (8.5-10.1); Calculated LDL 119 mg/dL (<100); Chloride 104 mmol/L (98-107); Cholesterol 206 mg/dL (<200); Estimated GFR 84.37 (mL/min/1.73m2); Glucose 94 mg/dL (74-106); HDL Cholesterol 38 mg/dL (40-60); Potassium 4.7 mmol/L (3.5-5.1); Sodium 142 mmol/L (136-145); Total Protein 7.5 g/dL (6.4-8.2); Triglyceride 245 mg/dL (<150)
== END 2024-07-05 15:48 | disposition home or self-care (01) ==
LOC: NCHCN 15:47
PROVIDERS: PCP Physician Assistant; Visit Provider Physician Assistant
DX: E78.5 Hyperlipidemia, unspecified (principal); Z13.1 Encounter for screening for diabetes mellitus
CPT/HCPCS: 80053; 80061; 83036

== ENCOUNTER 2024-07-29 13:30 | Emergency (ER) | payer MEDICAID, SELFPAY ==
[2024-07-29 13:31] VITALS: BP 122/81; PULSE 100; RESP 18; TEMP 36.5; O2SAT 94
--- NOTE | 2024-07-29 13:43 | ED.GENADUL_ITS ---
Discharge Plan Disposition Patient Disposition: Home Condition: Stable Discharge Details Clinical Impression: Lumbar back pain Primary Care Provider: Dipesh Mccartney ED Provider: Luis A Bedolla [place] Meds and New Rx's Prescriptions: Continued celecoxib [Celebrex] 100 mg capsule 100 mg PO DAILY gabapentin 600 mg tablet 600 mg PO TID 30 Days Qty: 90 11RF Rx Instructions: no abrupt cessation cyclobenzaprine 10 mg tablet 10 mg PO TID PRN Patient Comments: TAKE ONE TABLET BY MOUTH THREE TIMES A DAY NEEDED FOR 3 DAYS FOR MUSCLE SPASM ibuprofen [Advil] 200 mg tablet 200 mg PO ONCE Discharge Instructions Additional Instructions: You can take 400 mg of ibuprofen every 4 hours and 1000 mg of acetaminophen every 6 hours as needed Follow-up with your primary care provider this week Return to the emergency department if you feel more ill or have new symptoms such as high fevers or abdominal pain. HPI General Mode of arrival: ambulatory . Date/Time Provider Initiated Documentation: 07/29/24 13:34 . Limitations to Documentation: no limitations . Information obtained by: patient . History of Present Illness 43 year old M presents to the emergency department with the chief complaint of lower back pain, described as moderate, Quality is described as aching, and is localized to the back. Patient reports no radiation. Patient started experiencing this year(s) (3) No relieving factors improve symptom(s), No exacerbating factors reported . Patient notes denies fever/chills. Patient did receive the following treatments prior to arrival, none Related Data Home Medications ?Medication ?Instructions ?Recorded ?Confirmed gabapentin 600 mg tablet 600 mg PO TID 30 days #90 tabs 02/28/20 07/29/24 celecoxib 100 mg capsule (Celebrex) 100 mg PO DAILY 02/23/24 07/29/24 cyclobenzaprine 10 mg tablet 10 mg PO TID PRN 06/28/24 07/29/24 ibuprofen 200 mg tablet (Advil) 200 mg PO ONCE 07/29/24 07/29/24 Previous Rx's ?Medication ?Instructions ?Recorded gabapentin 600 mg tablet 600 mg PO TID 30 days #90 tabs 02/28/20 Allergies Allergy/AdvReac Type Severity Reaction Status Date / Time No Known Allergies Allergy Verified 07/29/24 13:35 General Stated Complaint: Nk/Back Pain KAMARI: 4 Review of Systems All systems reviewed & are unremarkable except as noted in HPI and below Constitutional Constitutional: Denies chills, Denies fever(s) and Denies weakness Cardiovascular Cardiovascular: Denies chest pain and Denies dyspnea Respiratory Respiratory: Denies cough and Denies dyspnea Gastrointestinal Gastrointestinal: Denies abdominal pain, Denies nausea and Denies vomiting Genitourinary Genitourinary: Denies dysuria Musculoskeletal Musculoskeletal: Reports back pain Neurologic Neurologic: Denies weakness Exam Const General: no acute distress Orientation: alert [facility] Head: normal to inspection Ears: external ears normal General nose exam: external nose normal Mouth: moist mucous membranes Eyes General: appearance normal, both eyes and all related structures Neck Neck: normal visual inspection Resp Effort & Inspection: normal respiratory effort and able to speak in complete sentences Cardio Rate: regular rate GI Palpation: soft and nontender Back/Spine/Pelvis Back: no CVA tenderness, No erythema and No warmth Skin General skin exam: no rashes or lesions noted Neuro General: patient alert and patient oriented x3 Extrem General: normal to inspection Psych Mental Status: mental status grossly normal Course Vital Signs Vital signs: Vital Signs Temperature 36.5 C 07/29/24 13:31 Pulse 100 H 07/29/24 13:31 Respiratory Rate 18 07/29/24 13:31 Blood Pressure 122/81 07/29/24 13:31 Pulse Oximetry 94 07/29/24 13:31 Temperature 36.5 C 07/29/24 13:31 Pulse 100 H 07/29/24 13:31 Respiratory Rate 18 07/29/24 13:31 Blood Pressure 122/81 07/29/24 13:31 Pulse Oximetry 94 07/29/24 13:31 Oxygen Delivery Method Room Air 07/29/24 13:31 Oxygen Flow Rate 0 07/29/24 13:31 Pain Level 10 07/29/24 13:31 Medical Decision Making 43-year-old male who has chronic lower back pain comes in with similar pain in the past but is worse in the last few days. He denies any trauma, no fevers, no chills, no IV drug use. Denies any weakness. No urinary retention or difficulty urinating. He is alert and appears well on exam. He no abdominal tenderness, localize the pain to the right lower lumbar region, no midline tenderness, no erythema or warmth. Suspect chronic back pain which could be due to disc herniation versus muscle spasm, no findings on history or exam to suggest spinal epidural abscess or cauda equina's do not feel emergent MRI indicated. No trauma so do not feel any x-rays are CT indicated. He has no fevers or infectious symptoms to suggest osteomyelitis or discitis. Will treat his pain with Toradol and reassess. Patient feeling better, still has a reassuring exam with no saddle anesthesia. 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 Degenerative disc disease, lumbar Acute low back pain Chronic low back pain Sleep disturbance Tobacco dependence Patellofemoral syndrome Myalgia Arthralgia Abscess, groin Surgical History History of appendectomy Social History Smoking/Tobacco Use Status: Current every day Tobacco Type: cigarettes Smoking packs per day: 0.5 Smoking cigarettes per day: 10.0 Smoking risk assessment performed?: Yes Alcohol Intake: current Alcohol Intake frequency: a few times a month Drug use: Daily Substance use type: marijuana Housing: apartment Do you feel safe at home: Yes Do you feel safe in your relationship?: Yes
[2024-07-29] MEDS: Ketorolac 15 MG/ML VIAL IM (14:00)
[2024-07-29] MEDS: Lidocaine 5% Patch 1 PATCH TP (14:35)
== END 2024-07-29 14:37 | disposition home or self-care (01) ==
PROVIDERS: Emergency Provider Emergency Medicine; PCP Physician Assistant
DX: M54.50 Low back pain, unspecified (principal); R20.0 Anesthesia of skin; F17.210 Nicotine dependence, cigarettes, uncomplicated
CPT/HCPCS: 96372; 99284; 99283; J1885

== ENCOUNTER 2024-08-29 01:07 | Outpatient (CLI) | payer MEDICAID, SELFPAY ==
--- NOTE | 2024-08-29 | DI.MRI_ITS ---
Exam(s) MR LUMBAR SPINE WO EXAM: MR LUMBAR SPINE WO CLINICAL HISTORY: LBP, M54.50, Rt sciatica. No recent trauma. TECHNIQUE: Multiplanar multisequence MRI of the Lumbar spine was performed. COMPARISON: MR MRI LUMBAR WO from 09/06/2020 MR MR LUMBAR SPINE WO from 02/14/2024 FINDINGS: Bones: The last intervertebral disc space is designated the L5/S1 level for the numbering purpose of this examination. The vertebral body heights are well maintained. There is a very mild right convex curvature of the lumbar spine. There are several stable vertebral body hemangioma. There are endpl ate osteophytes at multiple levels in the lower thoracic and lumbar spine. Mild endplate degenerativ e signal changes are present. Cord: The conus tip ends at the T12 level. It is of normal size and signal intensity. T12-L1: No disc herniations or bulges are present. No central spinal canal or neural foraminal stenos is. L1-2: No disc herniations or bulges are present. No central spinal canal or neural foraminal stenosis . L2-3: There is a new left paracentral disc herniation with extrusion posterior to the L3 vertebral roberto dy. There is resultant left lateral recess stenosis compressing the left L3 nerve root. There is re sultant mild narrowing of the central spinal canal. There is mild left stable neural foraminal narro wing. L3-4: There is a diffuse disc bulge present. There is resultant minimal narrowing of the neural fora men and bilateral neural foraminal narrowing. This is unchanged. L4-5: There is now a disc herniation at L4-L5 with extrusion posterior to the L5 vertebral body on th e right causing right lateral recess stenosis and compressing the right L5 nerve root. There are deg enerative changes of the facets. The results cause [id number] narrowing of the central spinal canal. No significant neural foraminal stenosis is present. L5-S1: There is again seen a diffuse disc bulge which extends into the neural foramen, right greater than left. There is compression of the right L5 nerve root with moderately severe right neural margo inal stenosis. There are degenerative changes of the facets present. No significant central spinal canal stenosis is seen. There is [id number] narrowing of the left neural foramen. Soft tissues: The visualized SI joints and sacrum are well maintained. The paraspinal soft tissues ar e unremarkable. IMPRESSION: 1. New right L4-5 paracentral disc herniation with extrusion posterior to the L5 vertebral body. Thi s causes right lateral recess stenosis and compresses the right L5 nerve root. 2. New left paracentral disc herniation at L2-L3 with extrusion posterior to the L3 vertebral body re sulting in left lateral recess stenosis and compression of the left L3 nerve root. 3. Stable L5-S1 disc herniation, right greater than left causing bilateral neural foraminal stenosis, right greater than left. 4. Multilevel degenerative changes in the lumbar spine as described above. DATA REPOSITORY:
== END 2024-08-29 01:27 ==
LOC: DI 01:07
PROVIDERS: PCP Physician Assistant; Visit Provider Physician Assistant
DX: M51.27 Other intervertebral disc displacement, lumbosacral region (principal); M48.062 Spinal stenosis, lumbar region with neurogenic claudication
CPT/HCPCS: 72148